=== PATIENT | female | born 1940 | race Caucasian/White ===

== ENCOUNTER 2017-04-20 15:28 | Emergency (ER) | payer OTHER ==
[~2017-04-20] VITALS: Ht 144.8 cm; Wt 65.8 kg
[~2017-04-20 15:28] MED LIST: ASPIRIN EC81 M1 PO; CARAFATE 1 GM TA1 G1 PO; CARVEDILOL12.5 MG PO; CHOLEST OFF450 MG PO; CLOPIDOGREL75 MG PO; CYCLOBENZAPRINE10 MG PO; FISH OIL 1,0001 EAC5 PO; HYDROCHLOROTH12.5 MG PO; HYDROCODON-ACE1 EAC7 PO; IMDUR 30 MG TAB30 M1 PO; KEFLEX500 MG PO; LISINOPRIL5 MG PO; MACROBID 100 M100 M1 PO; MIRAPEX0.5 MG PO; MOBIC15 MG PO; MULTIVITAMINS PO; NEURONTIN 300300 M1; OMEPRAZOLE 20 M20 MG PO; OXYCODONE HCL15 MG; OYSCO 500+D TA1 EAC1 PO; PLAVIX 75 MG TA75 MG PO; PROTONIX40 M1 PO; REQUIP XL2 MG PO; REQUIP3 MG PO; SIMVASTATIN40 MG PO; TIZANIDINE HCL4 MG PO; TRAMADOL 50 MG50 MG PO; VITAMIN D31000 UNI2 PO; ZANTAC 150MG T150 MG PO
[2017-04-20] MEDS ORDERED: NITROGLYCERIN0.4 MG SUBLING (15:57)
[2017-04-20] MEDS ORDERED: SPIRONOLACTONE25 M1 PO (15:58)
[2017-04-20] MEDS ORDERED: PLAVIX 75 MG TA75 M1 PO (15:58)
[2017-04-20] MEDS ORDERED: POTASSIUM600 MG PO (15:59)
[2017-04-20] MEDS ORDERED: MAGOX 400400 MG PO (15:59)
[2017-04-20] MEDS ORDERED: ONE DAILY FOR1 EAC3 PO (16:00)
[2017-04-20] MEDS ORDERED: NORCO 5-325 TA1 EACH PO (17:31)
[2017-04-20 17:58] VITALS: BP 113/62
== END 2017-04-20 18:13 | disposition home or self-care (01) ==
LOC: M.ERS 15:28
DX: S22.41XA Multiple fractures of ribs, right side, initial encounter for closed fracture (principal); S00.03XA Contusion of scalp, initial encounter; I25.10 Atherosclerotic heart disease of native coronary artery without angina pectoris; I10 Essential (primary) hypertension; K21.9 Gastro-esophageal reflux disease without esophagitis; Z90.711 Acquired absence of uterus with remaining cervical stump; Z90.49 Acquired absence of other specified parts of digestive tract; Z88.8 Allergy status to other drugs, medicaments and biological substances; Z88.1 Allergy status to other antibiotic agents; W00.0XXA Fall on same level due to ice and snow, initial encounter; Y93.89 Activity, other specified; Y92.89 Other specified places as the place of occurrence of the external cause; Y99.8 Other external cause status

== ENCOUNTER 2017-04-28 17:59 | Emergency (ER) | payer OTHER ==
[~2017-04-28] VITALS: Ht 144.8 cm; Wt 65.8 kg
[~2017-04-28 17:59] MED LIST changes: +MAGOX 400400 MG PO; +NITROGLYCERIN0.4 MG SUBLING; +NORCO 5-325 TA1 EACH PO; +ONE DAILY FOR1 EAC3 PO; +PLAVIX 75 MG TA75 M1 PO; +POTASSIUM600 MG PO; +SPIRONOLACTONE25 M1 PO
[2017-04-28 18:48] LABS: ABSOLUTE BASOPHILS 0.1 thou/uL (0.0-0.2); ABSOLUTE EOSINOPHILS 0.2 thou/uL (0.0-0.7); ABSOLUTE MONOCYTES 0.4 thou/uL (0.0-1.2); ABSOLUTE NEUTROPHILS 3.8 thou/uL (1.6-8.1); BASOPHILS 0.7 %; EOSINOPHILS 2.5 %; HEMATOCRIT 37.5 % (37.0-47.0); HEMOGLOBIN 12.7 gm/dL (12.0-15.0); LYMPHOCYTES 39.5 %; MCH 31.2 pg (26.0-34.0); MCHC 33.8 g/dL (28.0-37.0); MCV 92.5 fL (80.0-100.0); MPV 7.3 fl. (7.2-11.1); NUCLEATED RBCS 0 /100WBC; PLATELET COUNT* 179 thou/uL (150-400); POLYS 51.3 %; RBC 4.05 mil/uL (4.20-5.00); WBC 7.5 thou/uL (4.0-11.0)
[2017-04-28 18:56] LABS: CALCIUM 9.7 mg/dL (8.5-10.1)
[2017-04-28 19:01] LABS: ALBUMIN 3.7 g/dL (3.4-5.0); TOTAL BILIRUBIN 0.5 mg/dL (<0.1-1.0); TOTAL PROTEIN 7.1 g/dL (6.4-8.2)
[2017-04-28] MEDS ORDERED: PERCOCET PO (21:02)
[2017-04-28 21:10] VITALS: BP 134/68
--- NOTE | 2017-04-29 10:53 | EKG ---
[place] [address] ELECTROCARDIOGRAM REPORT Name: CONSTANTINO AGUAYO [facility] [id number] Admission: 04/28/17 Attend Phys: Discharge: 04/28/17 Date of : 38 Report #: [id number] THIS REPORT FOR: //name// [facility] ED Test Date: 2017-04-28 Test Time: 18:04:30 Pat Name: CONSTANTINO AGUAYO Department: Room: Gender: F Affiliate Marketing Coordinator: FELIX : 1940 Requested By: Janiya López Order Number: [id number] MD: Marques Matute Measurements Intervals [place] Rate: 65 P: -22 [place]: 164 QRS: 38 QRSD: 90 T: 41 QT: 383 QTc: 399 Interpretive Statements Sinus rhythm Compared to ECG 04/25/2015 07:07:30 No significant changes Electronically Signed On 04-29-2017 10:53:00 BROADCAST SUPERVISOR by Marques Matute [email or web address] <ELECTRONICALLY SIGNED> By: Marques Matute MD, [facility] 04/29/17 1053 1804 180 Marques Matute MD, FACC /EPI
== END 2017-04-28 21:10 | disposition home or self-care (01) ==
LOC: M.ERS 17:59
PROVIDERS: Personal Emergency Response Attendant
DX: S22.42XK Multiple fractures of ribs, left side, subsequent encounter for fracture with nonunion (principal); R07.89 Other chest pain; I25.10 Atherosclerotic heart disease of native coronary artery without angina pectoris; K21.9 Gastro-esophageal reflux disease without esophagitis; I10 Essential (primary) hypertension; Z90.710 Acquired absence of both cervix and uterus; Z90.49 Acquired absence of other specified parts of digestive tract; Z88.8 Allergy status to other drugs, medicaments and biological substances; Z88.1 Allergy status to other antibiotic agents; X58.XXXD Exposure to other specified factors, subsequent encounter

== ENCOUNTER 2017-06-02 14:14 | Emergency (ER) | payer OTHER ==
[~2017-06-02] VITALS: Ht 144.8 cm; Wt 64.4 kg
[~2017-06-02 14:14] MED LIST changes: +PERCOCET PO
[2017-06-02 15:19] VITALS: BP 137/72
== END 2017-06-02 15:20 | disposition home or self-care (01) ==
LOC: M.ERS 14:14
DX: S60.222A Contusion of left hand, initial encounter (principal); I10 Essential (primary) hypertension; I25.10 Atherosclerotic heart disease of native coronary artery without angina pectoris; K21.9 Gastro-esophageal reflux disease without esophagitis; Z88.8 Allergy status to other drugs, medicaments and biological substances; Z88.1 Allergy status to other antibiotic agents; W22.8XXA Striking against or struck by other objects, initial encounter; Y93.89 Activity, other specified; Y92.89 Other specified places as the place of occurrence of the external cause; Y99.8 Other external cause status

== ENCOUNTER → 2017-06-05 | Outpatient (CLI) | payer OTHER ==
[~2017-06-05] MED LIST changes: +COLESTIPOL HCL1 G1 PO; +PLAVIX 75 MG TA75 M1
== END ==
LOC: M.RAD 13:47
DX: Z13.820 Encounter for screening for osteoporosis (principal); N91.2 Amenorrhea, unspecified; Z78.0 Asymptomatic menopausal state

== ENCOUNTER → 2017-06-24 | Outpatient (CLI) | payer OTHER | LOC: M.RAD 10:59 | DX: R05 Cough (principal) ==

== ENCOUNTER 2017-10-02 18:31 | Inpatient (IN) | payer OTHER ==
[~2017-10-02] VITALS: Ht 144.8 cm; Wt 68.4 kg
[~2017-10-02 18:31] MED LIST changes: -COLESTIPOL HCL1 G1 PO; -PLAVIX 75 MG TA75 M1
[2017-10-02 18:34] VITALS: BP 137/64
[2017-10-02 19:23] LABS: ABSOLUTE LYMPHOCYTES 1.8 thou/uL (0.8-5.3); ABSOLUTE MONOCYTES 0.4 thou/uL (0.0-1.2); BASOPHILS 0.6 %; EOSINOPHILS 0.7 %; HEMATOCRIT 36.5 % (37.0-47.0); HEMOGLOBIN 12.2 gm/dL (12.0-15.0); LYMPHOCYTES 24.9 %; MCH 31.6 pg (26.0-34.0); MCHC 33.5 g/dL (28.0-37.0); MCV 94.3 fL (80.0-100.0); MONOCYTES 5.7 %; MPV 7.3 fl. (7.2-11.1); NUCLEATED RBCS 0 /100WBC; PLATELET COUNT* 201 thou/uL (150-400); POLYS 68.1 %; RBC 3.87 mil/uL (4.20-5.00); RDW-CV 14.3 % (10.5-14.5); WBC 7.3 thou/uL (4.0-11.0)
[2017-10-02 19:29] LABS: ANION GAP 7 mmol/L (7-16); BUN 17 mg/dL (7-18); CALCIUM 8.8 mg/dL (8.5-10.1); CHLORIDE 101 mmol/L (98-107); CO2 32 mmol/L (21-32); GLUCOSE 95 mg/dL (70-99); POTASSIUM 3.5 mmol/L (3.5-5.1); SODIUM 140 mmol/L (136-145)
[2017-10-02 19:34] LABS: APTT 25.2 Seconds (25.0-31.3); PROTIME 9.7 Seconds (9.20-11.50)
[2017-10-02 19:39] LABS: ALBUMIN 3.6 g/dL (3.4-5.0); ALKALINE PHOSPHATASE 213 U/L (46-116); NT-PRO BRAIN NAT PEPTIDE 147 pg/mL (<300); SGOT 125 U/L (15-37); SGPT 74 U/L (30-65); TOTAL BILIRUBIN 0.7 mg/dL (<0.1-1.0); TOTAL PROTEIN 7.1 g/dL (6.4-8.2); TROPONIN-I LEVEL <0.06 ng/mL (<0.06)
[2017-10-02 20:03] LABS: LIPASE 10461 U/L (73-393)
[2017-10-02 22:02] LABS: URINE BILIRUBIN NEGATIVE (Negative); URINE BLOOD NEGATIVE (Negative); URINE CLARITY CLEAR; URINE COLOR YELLOW; URINE GLUCOSE-RANDOM NEGATIVE (Negative); URINE KETONES NEGATIVE (Negative); URINE LEUKOCYTES-REFLEX NEGATIVE (Negative); URINE NITRITE-REFLEX NEGATIVE (Negative); URINE PROTEIN NEGATIVE (Negative); URINE UROBILINOGEN 0.2 E.U./dl (0.2-1.0)
[2017-10-02 22:49] VITALS: BP 115/61
[2017-10-02 23:00] VITALS: BP 113/77
[2017-10-03] MEDS ORDERED: PLAVIX 75 MG TA75 M1 (01:33)
[2017-10-03] MEDS ORDERED: COLESTIPOL HCL1 G1 PO (01:33)
[2017-10-03 08:57] VITALS: BP 125/69
--- NOTE | 2017-10-03 15:18 | EKG ---
[place] [address] ELECTROCARDIOGRAM REPORT Name: CONSTANTINO AGUAYO Room: [address] IN .R.#: [id number] Admission: 10/02/17 Attend Phys: Ruperto Winters MD Discharge: Date of : 38 Report #: [id number] THIS REPORT FOR: //name// [facility] ED Test Date: 2017-10-02 Test Time: 18:36:46 Pat Name: CONSTANTINO AGUAYO Department: Room: Gender: F Director Economic: BRISEYDA MUÑOZ : 1940 Requested By: Janiya López Order Number: [id number] MD: Nahid Lee Measurements Intervals [place] Rate: 82 P: 58 [place]: 164 QRS: 31 QRSD: 93 T: 32 QT: 373 QTc: 436 Interpretive Statements Sinus rhythm Baseline wander in lead(s) V3 Compared to ECG 04/28/2017 18:04:30 No significant changes Electronically Signed On 10-03-2017 15:18:19 CDT by Nahid Lee [email or web address] <ELECTRONICALLY SIGNED> By: Nahid Lee MD, [facility] 10/03/17 1518 1836 183 Nahid Lee MD, [facility] /EPI
[2017-10-03 16:23] VITALS: BP 102/56
[2017-10-04 04:46] LABS: ABSOLUTE EOSINOPHILS 0.1 thou/uL (0.0-0.7); ABSOLUTE LYMPHOCYTES 1.4 thou/uL (0.8-5.3); ABSOLUTE MONOCYTES 0.4 thou/uL (0.0-1.2); ABSOLUTE NEUTROPHILS 3.5 thou/uL (1.6-8.1); BASOPHILS 0.4 %; EOSINOPHILS 2.5 %; HEMATOCRIT 32.1 % (37.0-47.0); HEMOGLOBIN 10.7 gm/dL (12.0-15.0); LYMPHOCYTES 25.7 %; MCH 31.9 pg (26.0-34.0); MCHC 33.4 g/dL (28.0-37.0); MCV 95.5 fL (80.0-100.0); MPV 7.8 fl. (7.2-11.1); NUCLEATED RBCS 0 /100WBC; PLATELET COUNT* 159 thou/uL (150-400); POLYS 64.4 %; RBC 3.37 mil/uL (4.20-5.00); RDW-CV 14.8 % (10.5-14.5); WBC 5.4 thou/uL (4.0-11.0)
[2017-10-04 05:19] LABS: ALKALINE PHOSPHATASE 169 U/L (46-116); ANION GAP 9 mmol/L (7-16); BUN 7 mg/dL (7-18); CHLORIDE 105 mmol/L (98-107); CO2 24 mmol/L (21-32); CREATININE 0.9 mg/dL (0.6-1.3); GLUCOSE 96 mg/dL (70-99); LIPASE 249 U/L (73-393); POTASSIUM 3.3 mmol/L (3.5-5.1); SGOT 66 U/L (15-37); SGPT 76 U/L (30-65); SODIUM 138 mmol/L (136-145); TOTAL BILIRUBIN 0.8 mg/dL (<0.1-1.0)
[2017-10-04 05:32] LABS: CHOLESTEROL 157 mg/dL (<200); HDL CHOLESTEROL 50 mg/dL (>40); LDL CHOLESTEROL 91 mg/dL (<100); TC:HDL 3.1 Ratio (Not establshd); TRIGLYCERIDE 80 mg/dL (<150); VLDL 16 mg/dL (<40)
[2017-10-04 05:33] LABS: SERUM ASSESSMENT Clear
[2017-10-04 08:00] VITALS: BP 116/59
[2017-10-04 17:00] VITALS: BP 143/66
[2017-10-04 20:00] VITALS: BP 141/69
[2017-10-05 05:25] LABS: ALBUMIN 2.8 g/dL (3.4-5.0); DIRECT BILIRUBIN 0.1 mg/dL (<0.1-0.3); TOTAL BILIRUBIN 0.4 mg/dL (<0.1-1.0); TOTAL PROTEIN 5.7 g/dL (6.4-8.2)
[2017-10-05 05:43] VITALS: BP 141/69
[2017-10-05 05:58] VITALS: BP 120/66
[2017-10-05 08:25] VITALS: BP 124/65
[2017-10-05 11:45] VITALS: BP 144/85
[2017-10-05 16:00] VITALS: BP 137/70
[2017-10-05 20:10] VITALS: BP 123/44
[2017-10-06 05:39] LABS: ALBUMIN 2.7 g/dL (3.4-5.0); DIRECT BILIRUBIN 1.9 mg/dL (<0.1-0.3); TOTAL BILIRUBIN 2.8 mg/dL (<0.1-1.0); TOTAL PROTEIN 5.6 g/dL (6.4-8.2)
[2017-10-06 08:25] VITALS: BP 127/61
[2017-10-06 16:00] VITALS: BP 110/55
--- NOTE | 2017-10-06 17:21 | CON ---
[address] [address] CONSULTATION Name: CONSTANTINO AGUAYO Room: [address] IN .R.#: [id number] Admission: 10/02/17 Attend Phys: Ruperto Winters MD Discharge: Date of : 38 Report #: [id number] THIS REPORT FOR: //name// CC: Ruperto Jerry DO DICTATED BY: Cherelle Guan [facility] DATE OF SERVICE: 10/03/2017 Please note, at the time of this dictation the patient was seen and physically examined by myself. REASON FOR CONSULTATION: Abdominal pain, nausea, vomiting, pancreatitis. HISTORY OF PRESENT ILLNESS: This is a 76-year-old female who presented to the Emergency Room yesterday after having increasing epigastric discomfort and substernal discomfort causing some nausea and vomiting, prompting her to come in to be seen. It was noted on admission that her lipase level was 10,461, but no evidence noted on her CT for any pancreatitis. The patient denies starting any new medications at this time. She states over the years she has had similar off and on discomfort that has not been further investigated. Greater than 6 years ago, she had her gallbladder out for similar pains that she was having, but her pains never went away and that is what they were thinking that they would have gone away after her gallbladder was removed, but that did not occur. The patient recently saw Dr. Helm and had an EGD done on the , she had grade A esophagitis, Schatzki ring that was dilated and a small hiatal hernia. She then underwent a GET here most recently that showed tachygastria. Within the first hour she was 39.6, second hour 5.1 and third hour 1.4%. She had not been told of these results yet. She had not returned our phone call. We will start her on her Bentyl 10 mg a.c. t.i.d. at this time. The patient currently is still complaining of this epigastric and kind of sternal discomfort at the time that she is seen. The patient states she has a long history of having high cholesterol, which she takes an tiyd-cwq-zbghddx medicine for to help with that, but does not recall when last time her cholesterol has been checked. She denies any new medications being started at this time and is not having any issues with her bowels. It is also noted on admission that her LFTs are somewhat elevated, just slightly. ALLERGIES: CIPROFLOXACIN, FLAGYL, AND DEMEROL. MEDICATIONS: From home include carvedilol, Zantac, Mirapex, Protonix, plant sterols or CholestOff, spironolactone, potassium, aspirin, and vitamin D. PAST MEDICAL HISTORY: Hypertension, coronary artery disease, [place] [address] CONSULTATION Name: CONSTANTINO AGUAYO Room: [address] IN [facility]#: [id number] Admission: 10/02/17 Attend Phys: Ruperto Winters MD Discharge: Date of : 38 Report #: [id number] stent placed in 2007, GERD, history of esophagitis grade A with her recent EGD, and history of diverticulitis. PAST SURGICAL HISTORY: Cardiac stent, hysterectomy and cholecystectomy. FAMILY HISTORY: Negative for any GI or female cancer. SOCIAL HISTORY: Denies any alcohol, tobacco or illegal drug use. REVIEW OF SYSTEMS: Twelve-point review of systems is essentially negative except what is mentioned in the HPI. PHYSICAL EXAMINATION: VITAL SIGNS: Temperature 37.1, pulse 87, respirations 19, blood pressure 125/64. HEART: Regular rate and rhythm. LUNGS: Clear. ABDOMEN: Soft, positive bowel sounds in all 4 quadrants with some slight epigastric to substernal tenderness noted to palpation. LABORATORY DATA: Hemoglobin is 12.2, hematocrit 36.5, white count is 7.3, platelets 201. PT 9.7, INR is 1. Sodium 140, potassium 3.5, chloride 101, CO2 of 32, BUN is 17, creatinine is 1, GFR is 54, glucose is 95, total bilirubin 0.7, alkaline phosphatase 213, ALT is 74, AST is 125. CT shows sigmoid diverticulosis, absent gallbladder and mild dilatation of the CPD likely related to previous cholecystectomy and a small hiatal hernia. No inflammation or stranding is noted of the pancreas on CT. IMPRESSION: 1. Chest pain, epigastric. 2. Elevated lipase. 3. Tachygastria documented on recent GET as an outpatient. 4. Esophagitis grade A recent EGD along with Schatzki ring that was dilated. PLAN: 1. Recheck lipase and lipids fasting in the a.m. 2. We will let the patient have clear liquids and see how she does. 3. Bentyl 10 mg a.c. t.i.d. 4. We will consider an EUS as an outpatient for her ongoing discomfort in the epigastric area for years, but worsening upon this admission. 5. We will allow the patient to have clear liquids [place] [address] CONSULTATION Name: CONSTANTINO AGUAYO Room: [address] IN ..#: [id number] Admission: 10/02/17 Attend Phys: Ruperto Winters MD Discharge: Date of : 38 Report #: [id number] Thank you for allowing us to participate in this patient's care. Please do not hesitate to call with any questions in regard to this consult. <ELECTRONICALLY SIGNED> By: Juan Diego Hart DO 10/06/17 1721 1155 1222Juan Diego Hart DO /nt
--- NOTE | 2017-10-06 17:21 | CON ---
[address] [address] CONSULTATION Name: TACOSKhalidaJANESSAHECTOROrestes Fox Room: [address] IN M.R.#: [id number] Admission: 10/02/17 Attend Phys: Ruperto Winters MD Discharge: Date of : 38 Report #: [id number] THIS REPORT FOR: //name// CC: Ruperto HORN DO Shaylee Cee MD DATE OF SERVICE: 10/03/2017 ADDENDUM REFERRING PHYSICIAN: Dr. Winters. I have seen and examined the patient and I agree with the plans that have been outlined by our nurse practitioner, Cherelle Guan. I am mostly concerned about the rather severe chest discomfort, chest pain associated with an elevated alkaline phosphatase, dilated common bile duct on CT scan and an elevated lipase without evidence for severe pancreatitis. I suspect that the patient either had a stone or had passed a common bile duct stone or she has sphincter of Oddi dysfunction, type 1. If she has sphincter of Oddi dysfunction type 1, she will have 90+ percent chance of getting better with an ERCP with a shallow biliary sphincterotomy of about 6 mm, followed by balloon exploration of the common bile duct. For this reason, I will order an MRCP to be done tomorrow morning and then have my partner, Dr. Helm, make the decision as to whether or not he wishes to proceed with an ERCP tomorrow afternoon. I have drawn pictures for the patient who spent about 20 minutes with them regarding the same. I will make further recommendations after the MRCP is done tomorrow. <ELECTRONICALLY SIGNED> By: Juan Diego Hart DO 10/06/17 1721 1816 [id number] Diego Hart DO /nt
[2017-10-06 19:50] VITALS: BP 123/66
[2017-10-07 04:38] LABS: ALBUMIN 2.4 g/dL (3.4-5.0); DIRECT BILIRUBIN 1.4 mg/dL (<0.1-0.3); TOTAL BILIRUBIN 1.9 mg/dL (<0.1-1.0); TOTAL PROTEIN 5.1 g/dL (6.4-8.2)
[2017-10-07 07:50] VITALS: BP 118/62
[2017-10-07 12:14] VITALS: BP 118/62
== END 2017-10-07 13:24 | disposition home or self-care (01) | DRG 438 ==
LOC: M.ERS 18:31 → M.3W 20:33 → M.TBA-ER 20:33 → M.3W 23:04
PROVIDERS: Family Medicine; Internal Medicine; Internal Medicine Gastroenterology; Personal Emergency Response Attendant; ADMIT Internal Medicine
PROC: 0FC98ZZ Extirpation of Matter from Common Bile Duct, Via Natural or Artificial Opening Endoscopic (ICD-10-PCS; principal; 2017-10-05)
PROC: BF111ZZ Fluoroscopy of Biliary and Pancreatic Ducts using Low Osmolar Contrast (ICD-10-PCS; principal; 2017-10-05)
DX: K85.90 Acute pancreatitis without necrosis or infection, unspecified (principal); R65.11 Systemic inflammatory response syndrome (SIRS) of non-infectious origin with acute organ dysfunction; K80.71 Calculus of gallbladder and bile duct without cholecystitis with obstruction; K75.89 Other specified inflammatory liver diseases; R10.13 Epigastric pain; I10 Essential (primary) hypertension; K31.89 Other diseases of stomach and duodenum; I25.10 Atherosclerotic heart disease of native coronary artery without angina pectoris; M43.10 Spondylolisthesis, site unspecified; E78.5 Hyperlipidemia, unspecified; G25.81 Restless legs syndrome; D64.9 Anemia, unspecified; K20.9 Esophagitis, unspecified; M19.90 Unspecified osteoarthritis, unspecified site; K21.9 Gastro-esophageal reflux disease without esophagitis; Z96.1 Presence of intraocular lens; Z79.2 Long term (current) use of antibiotics; Z79.82 Long term (current) use of aspirin; Z79.899 Other long term (current) drug therapy; Z90.49 Acquired absence of other specified parts of digestive tract; Z88.6 Allergy status to analgesic agent; Z88.1 Allergy status to other antibiotic agents; Z90.711 Acquired absence of uterus with remaining cervical stump; Z95.1 Presence of aortocoronary bypass graft; Z98.41 Cataract extraction status, right eye; Z90.722 Acquired absence of ovaries, bilateral; Z95.5 Presence of coronary angioplasty implant and graft

== ENCOUNTER → 2017-10-16 | Outpatient (CLI) | payer OTHER ==
[~2017-10-16] MED LIST changes: +COLESTIPOL HCL1 G1 PO; +PLAVIX 75 MG TA75 M1
--- NOTE | 2017-10-16 17:11 | 2DMMODE ---
[place] [address] 2 D/M-MODE ECHOCARDIOGRAM Name: HECTOR AGUAYOOrestes Fox Room: [facility]#: [id number] Admission: 10/16/17 Attend Phys: Debo Vigil Discharge: Date of : 38 Date of Service: 10/16/17 1710 Report #: [id number] THIS REPORT FOR: //name// APPROVED REPORT Study performed: 10/16/2017 14:00:01 EXAM: Comprehensive 2D, Doppler, and color-flow Echocardiogram Patient Location: Out-Patient Status: routine BSA: 1.65 HR: 73 bpm BP: 146/78 mmHg Other Information Study Quality: Good Indications Elevated BNP Edema 2D Dimensions LVEF(%): 73.43 (>50%) IVSd: 10.95 (7-11mm) LVOT Diam: 18.17 (18-24mm) LVDd: 36.54 mm PWd: 11.10 (7-11mm) Ascending Ao: 28.55 (22-36mm) LVDs: 21.33 (25-40mm) Aortic Root: 26.74 mm Peña's LVEF: 73.43 % Volumes Left Atrial Volume (Systole) LA ESV Index: 12.00 mL/m2 Aortic Valve AoV Peak Aaron.: 1.27 m/s AO Peak Gr.: 6.46 mmHg LVOT Max P.64 mmHg AO Mean Gr.: 3.44 mmHg LVOT Mean P.20 mmHg LVOT Max V: 1.08 m/s AO V2 VTI: 22.17 cm LVOT Mean V: 0.68 m/s JEREMY (VTI): 2.68 cm2 LVOT V1 VTI: 22.91 cm Mitral Valve E/A Ratio: 0.81 MV Decel. Time: 236.20 [place] [address] 2 D/M-MODE ECHOCARDIOGRAM Name: CONSTANTINO AGUAYO Room: [facility]#: [id number] Admission: 10/16/17 Attend Phys: Debo Vigil Discharge: Date of : 38 Date of Service: 10/16/17 1710 Report #: [id number] MV E Max Aaron.: 0.66 m/s MV PHT: 68.50 ms MVA (PHT): 3.21 cm2 TDI E/Lateral E': 9.43 E/Medial E': 9.43 Medial E' Aaron.: 0.07 m/s Lateral E' Aaron.: 0.07 m/s Pulmonary Valve PV Peak Aaron.: 1.01 m/s PV Peak Gr.: 4.04 mmHg Tricuspid Valve RAP Estimate: 5.00 mmHg TR Peak Gr.: 21.95 mmHg RVSP: 26.95 mmHg PA Pressure: 26.95 mmHg Left Ventricle The left ventricle is normal size. There is normal LV segmental wall motion. There is normal left ventricular wall thickness. Left ventricular systolic function is normal. The left ventricular ejection fraction is within the normal range. LVEF is 55-60%. Grade I - abnormal relaxation pattern. Right Ventricle The right ventricle is normal size. The right ventricular systolic function is normal. Atria The left atrium size is normal. The right atrium size is normal. Aortic Valve Mild aortic valve sclerosis. No aortic regurgitation is present. There is no aortic valvular stenosis. Mitral Valve The mitral valve is normal in structure. Mild mitral regurgitation. No evidence of mitral valve stenosis. Tricuspid Valve The tricuspid valve is normal in structure. Mild tricuspid regurgitation. Pulmonic Valve The pulmonary valve is normal in structure[place] [address] 2 D/M-MODE ECHOCARDIOGRAM Name: CONSTANTINO AGUAYO Dominique Room: [facility]#: [id number] Admission: 10/16/17 Attend Phys: Debo Vigil Discharge: Date of : 38 Date of Service: 10/16/17 1710 Report #: [id number] regurgitation. Great Vessels The aortic root is normal in size. IVC is normal in size and collapses with >50% inspiration Pericardium There is no pericardial effusion. <Conclusion> The left ventricle is normal size. There is normal left ventricular wall thickness. Left ventricular systolic function is normal. The left ventricular ejection fraction is within the normal range. LVEF is 55-60%. Grade I - abnormal relaxation pattern. The right ventricle is normal size. The left atrium size is normal. Mild aortic valve sclerosis. No aortic regurgitation is present. There is no aortic valvular stenosis. The mitral valve is normal in structure. Mild mitral regurgitation. The tricuspid valve is normal in structure. IVC is normal in size and collapses with >50% inspiration There is no pericardial effusion. There is normal LV segmental wall motion. <ELECTRONICALLY SIGNED> By: Nahid Lee MD, FACC 10/16/171709 09 09 Nahid Lee MD, FACC /INF
== END ==
LOC: M.CRD 13:49
DX: I08.1 Rheumatic disorders of both mitral and tricuspid valves (principal)

== ENCOUNTER → 2017-10-24 | Outpatient (CLI) | payer OTHER ==
--- NOTE | 2017-10-29 13:06 | PF ---
[address] [address] PULMONARY FUNCTION REPORT Name: CONSTANTINO AGUAYO Room: [facility] ROLAND Stewart#: [id number] Admission: 10/24/17 Attend Phys: Miriam Wiley Discharge: Date of : 38 Report #: [id number] THIS REPORT FOR: //name// CC: Miriam Helm Shaylee Rosalino DATE OF SERVICE: 10/24/2017 PULMONARY FUNCTION TEST FINDINGS: The FEV1/FVC ratio is normal at 86%. The patient's FVC is also normal at 94%. The FEV1 is normal at 110%. The FEF 25-75 is also normal at 115%. After the administration of a bronchodilator, there is no significant change in the patient's FEV1. The patient's post-bronchodilator FEV1 is noted to be 1.55 liters. There is, however, a 13% increase in the patient's forced vital capacity. The patient's flow volume loop looks normal. The total lung capacity is decreased to 77%. The residual volume is also decreased to 60%. The patient's DLCO as adjusted for hemoglobin is decreased to 63%. IMPRESSION: 1. There is a mild restrictive pattern with a total lung capacity decreased to 77%. 2. There is no definite evidence of obstruction. It is, however, noted that there is a 13% increase in forced vital capacity after the administration of albuterol and underlying obstructive lung disease can lead to this picture. Clinical correlation is advised. 3. The DLCO as adjusted for hemoglobin is decreased to 63%. <ELECTRONICALLY SIGNED> By: Curtis Barnard MD 10/29/17 1306 1310 [id number] Barnard MD /nt
== END ==
LOC: M.PUL 09:44
DX: R06.09 Other forms of dyspnea (principal)

== ENCOUNTER 2018-05-17 20:45 | Inpatient (IN) | payer OTHER ==
[~2018-05-17] VITALS: Ht 144.8 cm; Wt 65.8 kg
[2018-05-17 20:53] VITALS: BP 142/84
[2018-05-17] MEDS ORDERED: POTASSIUM GLU2.5 MEQ PO (21:00)
[2018-05-17] MEDS ORDERED: BENTYL 10 MG CA10 M1 PO (21:15)
[2018-05-17] MEDS ORDERED: PROBIOTIC1 EAC1 PO (21:16)
[2018-05-17 21:51] LABS: ABSOLUTE BASOPHILS 0.1 thou/uL (0.0-0.2); ABSOLUTE EOSINOPHILS 0.1 thou/uL (0.0-0.7); ABSOLUTE LYMPHOCYTES 3.6 thou/uL (0.8-5.3); ABSOLUTE MONOCYTES 0.6 thou/uL (0.0-1.2); ABSOLUTE NEUTROPHILS 4.5 thou/uL (1.6-8.1); BASOPHILS 0.7 %; EOSINOPHILS 0.9 %; HEMATOCRIT 41.3 % (37.0-47.0); HEMOGLOBIN 13.6 gm/dL (12.0-15.0); LYMPHOCYTES 40.9 %; MCH 30.9 pg (26.0-34.0); MCHC 32.9 g/dL (28.0-37.0); MONOCYTES 6.4 %; MPV 8.1 fl. (7.2-11.1); NUCLEATED RBCS 0 /100WBC; PLATELET COUNT* 194 thou/uL (150-400); POLYS 51.1 %; WBC 8.8 thou/uL (4.0-11.0)
[2018-05-17 22:00] LABS: ALBUMIN 3.8 g/dL (3.4-5.0); CALCIUM 9.2 mg/dL (8.5-10.1); CREATININE 1.1 mg/dL (0.6-1.3); MAGNESIUM 2.2 mg/dL (1.8-2.4); POTASSIUM 3.8 mmol/L (3.5-5.1); TOTAL BILIRUBIN 0.3 mg/dL (<0.1-1.0); TOTAL PROTEIN 7.3 g/dL (6.4-8.2)
[2018-05-17 23:00] LABS: URINE BILIRUBIN NEGATIVE (Negative); URINE BLOOD NEGATIVE (Negative); URINE CLARITY CLEAR; URINE COLOR YELLOW; URINE GLUCOSE-RANDOM NEGATIVE (Negative); URINE KETONES NEGATIVE (Negative); URINE LEUKOCYTES-REFLEX 1+ (Negative); URINE NITRITE-REFLEX NEGATIVE (Negative); URINE PROTEIN NEGATIVE (Negative); URINE UROBILINOGEN 0.2 E.U./dl (0.2-1.0)
[2018-05-17 23:16] LABS: BACTERIA-REFLEX >30 Many /HPF (None Seen); CASTS None Seen /LPF (None Seen); CRYSTALS None Seen /LPF (None Seen); MUCUS 0-3 Light strn/LPF (None Seen); SQUAMOUS 0-3 Few /LPF (0-3); TRANSITIONAL EPITHEL CELL 0-3 Few /LPF (None Seen); URINE RBC 3-10 Few /HPF (0-2); URINE WBC-REFLEX >25 Many /HPF (0-5); WBC CLUMPS Few (None Seen)
[2018-05-17 23:40] VITALS: BP 125/69
[2018-05-18] VITALS (7 sets, daily range): BP systolic 115–164; BP diastolic 65–86
--- NOTE | 2018-05-18 15:06 | EKG ---
[place] [address] ELECTROCARDIOGRAM REPORT Name: CONSTANTINO AGUAYO Room: [address] ADM IN M.R.#: [id number] Admission: 05/17/18 Attend Phys: Ja Pierre, Discharge: Date of : 38 Report #: [id number] THIS REPORT FOR: //name// [facility] ED Test Date: 2018-05-17 Test Time: 21:06:36 Pat Name: CONSTANTINO AGUAYO Department: Room: [address] Gender: F Hand Cultivator: Nata SINGH : 1940 Requested By: Janiya López Order Number: [id number] MD: Adolph Lagunas Measurements Intervals [place] Rate: 83 P: -4 [place]: 168 QRS: 19 QRSD: 89 T: 40 QT: 373 QTc: 439 Interpretive Statements Sinus rhythm Ventricular premature complex Compared to ECG 10/02/2017 18:36:46 Ventricular premature complex(es) now present Electronically Signed On 05-18-2018 15:06:39 CDT by Adolph Lagunas [email or web address] <ELECTRONICALLY SIGNED> By: Adolph Lagunas MD, FACC 05/18/18 1506 05 05 Adolph Lagunas MD, FAC /EPI
[2018-05-18 16:24] LABS: NT-PRO BRAIN NAT PEPTIDE 249 pg/mL (<300); TROPONIN-I LEVEL <0.06 ng/mL (<0.06)
[2018-05-19] VITALS: BP 107/59
[2018-05-19 04:32] VITALS: BP 136/70
[2018-05-19 08:00] VITALS: BP 139/78
[2018-05-19] MEDS ORDERED: TRAMADOL 50 MG50 MG PO (14:13)
[2018-05-19 14:48] VITALS: BP 139/78
[2018-05-19 16:00] VITALS: BP 136/78
--- NOTE | 2018-05-19 17:22 | CARDNUC ---
[place] [address] CARDIAC NUCLEAR IMAGING REPORT Name: DEDEHECTOROrestes JACKLYN Room: [address] IN [facility]#: [id number] Admission: 05/17/18 Attend Phys: Ja Jones Discharge: Date of : 38 Date of Service: 05/19/18 1722 Report #: [id number] THIS REPORT FOR: //name// APPROVED REPORT Study performed: 05/18/2018 12:39:00 Indication: Chest pain, Dyspnea Patient Location: In-Patient Room #: 221 Stress Tech: Tanvi Lang Stress Nurse: Danuta Lyon RN Ht: 4 ft 9 in Wt: 145 lbs BSA: 1.57 m2 HR: 71 bpm BP: 157/88 mmHg BMI: 31.37 Medical History Medical History: CAD Medications: Carvedilol, Nitroglycerin, Aspirin, k-Dur, Spironolactone Allergies: Ciprofloxacin, Illeperidine, metronidazole Cardiac Risk Factors: Age, Hyperlipidemia, HTN, FHX of CAD Previous Cardiac Procedures: PCI Resting Data Rest SPECT myocardial perfusion imaging was performed in supine position 30 minutes following the intravenous injection of 11.4 mCi of Tc-99m Sestamibi. Time of rest injection: 10:20 The images were gated to evaluate regional wall motion and calculate left ventricular ejection fraction. Administration Route: IV Administration Site: Right Hand Pharmacologic Stress Pharmacologic stress test was performed by injecting Regadenoson 0.4 mg IV push over 10-15 seconds immediately followed by the intravenous injection of 34.2 mCi of Tc-99m Sestamibi. Time of stress injection: 11:55 Administration Route: IV Administration Site: Right Hand Heart Rate at time of stress injection: 106 bpm. Gated Stress SPECT was performed 40 minutes [place] [address] CARDIAC NUCLEAR IMAGING REPORT Name: CONSTANTINO AGUAYO Room: [address] IN ..#: [id number] Admission: 05/17/18 Attend Phys: Ja Jones Discharge: Date of : 38 Date of Service: 05/19/18 1722 Report #: [id number] The images were gated to evaluate regional wall motion and calculate left ventricular ejection fraction. Prone imaging was performed. Stress Test Details Stress Test: Pharmacologic stress testing performed using 0.4 mg of regadenoson per 5 mL given IV over 10 seconds. HR Max Heart Rate (APMHR): 142 bpm Resting HR: 71 bpm Target HR (85% APMHR): 120 bpm Max HR Achieved: 106 bpm % of APMHR: 74 Recovery HR: 98 bpm HR response to stress: Normal HR response to stress BP Resting BP: 157/88 mmHg Max BP: 106/67 mmHg Recovery BP: 143/81 mmHg BP response to stress: Normal blood pressure response to stress. ECG Resting ECG: Sinus Rhythm Stress ECG: Sinus Rhythm ST Change: None Arrhythmia: None Recovery ECG: Sinus Rhythm Recovery ST Change: None Recovery Arrhythmia: None Clinical Reason for Termination: Completed protocol Stress Symptoms: None Exercise capacity: 1.00 METs The patient tolerated Lexiscan infusion without significant symptoms. Stress ECG Conclusion The baseline 12-lead EKG shows sinus rhythm without significant ST or T wave abnormality. EKGs obtained during and post Lexiscan infusion show sinus rhythm with no significant ST or T wave changes when compared baseline. There were no stress-induced arrhythmias. Study Quality Study: Good Artifact: [place] [address] CARDIAC NUCLEAR IMAGING REPORT Name: TACOSKhalidaJANESSACONSTANTINO Room: [address]#: [id number] Admission: 05/17/18 Attend Phys: Ja Jones Discharge: Date of : 38 Date of Service: 05/19/18 1722 Report #: [id number] Study Data At rest, the left ventricular ejection fraction was 81%.. Post stress, the left ventricular ejection was 79%.. TID = 1.08. Perfusion Normal left ventricular perfusion. Wall Motion Normal left ventricular wall motion. Nuclear Conclusion ECG Findings: negative for ischemia Clinical Findings: negative for ischemia Nuclear Findings: negative for ischemia Exercise Capacity: not assessed Left Ventricular Function: normal Risk Study: low Myocardial perfusion images show no defect to suggest infarct or ischemia. Left ventricular systolic function appears normal on gated studies. This is a low risk study. <Conclusion> The baseline 12-lead EKG shows sinus rhythm without significant ST or T wave abnormality. EKGs obtained during and post Lexiscan infusion show sinus rhythm with no significant ST or T wave changes when compared baseline. There were no stress-induced arrhythmias. <ELECTRONICALLY SIGNED> By: Adolph Lagunas MD, FACC 05/19/18 172 21 21 Adolph Lagunas MD, FACC /INF
--- NOTE | 2018-05-22 16:54 | CON ---
[address] [address] CONSULTATION Name: CONSTANTINO AGUAYO Room: [address] IN M.R.#: [id number] Admission: 05/17/18 Attend Phys: Ja Pierre, Discharge: 05/19/18 Date of : 38 Report #: [id number] THIS REPORT FOR: //name// CC: Miriam Veliz DATE OF SERVICE: 05/18/2018 CARDIOLOGY CONSULTATION INDICATION: Shortness of breath and hip pain. HISTORY OF PRESENT ILLNESS: The patient is a very pleasant 77-year-old female with history of coronary artery disease, status post percutaneous coronary intervention in [address] [facility]. Apparently at that time, there was some debate as to whether or not she needed bypass surgery. She reports having a totally occluded artery that is filled by collaterals. The films were reviewed by outside ring making machine operator and it was decided to proceed with percutaneous coronary intervention. The patient denies any history of myocardial infarction. Risk factors include hypertension and dyslipidemia. She is a lifelong nonsmoker. Her mother did have angina at an older age. She presented to the hospital with complaints of feelings of shortness of breath and inability to get her breath. Evaluation thus far has been fairly unremarkable. I do not have a troponin or BNP, which will be ordered. EKG showed sinus rhythm without acute ST or T-wave abnormality. Echocardiogram last October was fairly unremarkable. She has not had stress testing in several years. She denies typical chest pain, although she reports a constant tightness around her chest described as her bra being too tight. She is not having krishna orthopnea. She denies paroxysmal nocturnal dyspnea. She does feel short of breath sometimes when she bends over. Her other complaint at this time appears to be related to lower back and hip issues. She has some pain radiating from around the left posterior lower back into her left upper thigh. CURRENT MEDICATIONS: Ventolin inhaler 2 puffs q. 6 hours p.r.n., carvedilol 12.5 mg p.o. b.i.d., vitamin D3 at 1000 mg per units daily, Colestid 1 g b.i.d., Bentyl 10 mg t.i.d. with meals, magnesium oxide 250 mg daily, Nitrostat 0.4 mg sublingual p.r.n., Protonix 40 mg daily, CholestOff supplement 1 daily, potassium chloride 20 mEq daily, Mirapex 0.5 mg tablet at bedtime, Zantac 300 mg at bedtime, Aldactone 25 mg daily. ALLERGIES: CIPROFLOXACIN, METRONIDAZOLE [place] [address] CONSULTATION Name: CONSTANTINO AGUAYO Room: [address] IN M.R.#: [id number] Admission: 05/17/18 Attend Phys: Ja Pierre, Discharge: 05/19/18 Date of : 38 Report #: [id number] PAST MEDICAL HISTORY: 1. Coronary artery disease. 2. Gastroesophageal reflux. 3. Hypertension. 4. Hyperlipidemia. 5. Rhabdomyolysis secondary to SIMVASTATIN. 6. Acute pancreatitis related to gallstone pancreatitis last year. 7. History of nephrolithiasis. PAST SURGICAL HISTORY: 1. Rib fracture in 2018. 2. Salpingo-oophorectomy bilaterally. 3. Ovarian cyst removal in 2013. 4. Cataract surgery in 2011. 5. Cholecystectomy in 2009. 6. Right rotator cuff surgery in 2008. 7. Partial hysterectomy. SOCIAL HISTORY: The patient is a lifelong nonsmoker. FAMILY HISTORY: Noncontributory. PHYSICAL EXAMINATION: VITAL SIGNS: Blood pressure 151/81, pulse 66 and regular. GENERAL: This is a pleasant lady, in no distress. Mood and affect appropriate. HEENT: Extraocular muscles intact. Mucous membranes moist. NECK: Shows no jugular venous distention. There are no carotid bruits. CHEST: Reveals clear lung barclay without wheezes, rales or rhonchi. CARDIOVASCULAR: Reveals regular rhythm, normal S1 and S2. I do not appreciate gallop or murmur. ABDOMEN: Reveals normal bowel sounds. The abdomen is soft, nontender. EXTREMITIES: Shows no clubbing, cyanosis or edema. Peripheral pulses 2+ and easily palpable. SKIN: Warm and dry. A 12-lead EKG shows sinus rhythm without significant ST or T-wave abnormality. IMPRESSION AND RECOMMENDATIONS: 1. Prolonged chest discomfort, somewhat atypical for angina. The patient is having some shortness of breath and dyspnea as well. We will proceed with noninvasive stress testing at this time. I would also like to obtain NT-proBNP and troponin at this time. Further intervention will be pending the results of that study. 2. Hypertension. We will make adjustments to medications as needed. Blood pressure minimally elevated at this time. [address] [address] CONSULTATION Name: CONSTANTINO AGUAYO Room: [facility] IN M.R.#: [id number] Admission: 05/17/18 Attend Phys: Ja Pierre, Discharge: 05/19/18 Date of : 38 Report #: [id number] 3. Dyslipidemia. The patient is currently on CholestOff and Colestid. Would recommend consideration of PCSK9 inhibitor. 4. History of coronary artery disease. Continue daily aspirin. 5. Remote history of percutaneous coronary intervention. <ELECTRONICALLY SIGNED> By: Adolph Lagunas MD, FACC 05/22/18 1654 1238 0915Microsalia Lagunas MD, FACC /nt
== END 2018-05-19 19:07 | disposition home or self-care (01) | DRG 556 ==
LOC: M.ERS 20:45 → M.TBA-ER 22:51 → M.2W 22:51
PROVIDERS: Internal Medicine Cardiovascular Disease; Personal Emergency Response Attendant; ADMIT Family Medicine
DX: M79.18 Myalgia, other site (principal); N39.0 Urinary tract infection, site not specified; R07.89 Other chest pain; M19.90 Unspecified osteoarthritis, unspecified site; I10 Essential (primary) hypertension; I25.10 Atherosclerotic heart disease of native coronary artery without angina pectoris; M54.30 Sciatica, unspecified side; R26.9 Unspecified abnormalities of gait and mobility; M51.37 Other intervertebral disc degeneration, lumbosacral region; M47.896 Other spondylosis, lumbar region; K21.9 Gastro-esophageal reflux disease without esophagitis; E78.5 Hyperlipidemia, unspecified; Z87.81 Personal history of (healed) traumatic fracture; Z95.1 Presence of aortocoronary bypass graft; Z95.5 Presence of coronary angioplasty implant and graft; Z90.710 Acquired absence of both cervix and uterus; Z98.41 Cataract extraction status, right eye; Z87.442 Personal history of urinary calculi; Z90.722 Acquired absence of ovaries, bilateral; Z79.899 Other long term (current) drug therapy; Z88.1 Allergy status to other antibiotic agents; Z88.8 Allergy status to other drugs, medicaments and biological substances

== ENCOUNTER → 2018-10-08 | Outpatient (CLI) | payer OTHER ==
[~2018-10-08] MED LIST changes: +BENTYL 10 MG CA10 M1 PO; +POTASSIUM GLU2.5 MEQ PO; +PROBIOTIC1 EAC1 PO
== END ==
LOC: M.MRI 07:54
DX: M50.11 Cervical disc disorder with radiculopathy, high cervical region (principal); M12.88 Other specific arthropathies, not elsewhere classified, other specified site; M48.02 Spinal stenosis, cervical region; G89.29 Other chronic pain

== ENCOUNTER 2018-12-28 20:08 | Emergency (ER) | payer OTHER ==
[~2018-12-28] VITALS: Ht 144.8 cm; Wt 65.3 kg
[2018-12-28] MEDS ORDERED: ASA81BEC PO (20:22)
[2018-12-28] MEDS ORDERED: HYDROCODON-ACE1 EAC8 PO (21:59)
[2018-12-28 22:12] VITALS: BP 119/55
== END 2018-12-28 22:14 | disposition home or self-care (01) ==
LOC: M.ERS 20:08
DX: M79.2 Neuralgia and neuritis, unspecified (principal); M19.90 Unspecified osteoarthritis, unspecified site; I10 Essential (primary) hypertension; Z95.5 Presence of coronary angioplasty implant and graft; Z87.442 Personal history of urinary calculi; Z88.1 Allergy status to other antibiotic agents; Z88.8 Allergy status to other drugs, medicaments and biological substances; Z90.711 Acquired absence of uterus with remaining cervical stump

== ENCOUNTER 2019-02-09 23:31 | Emergency (ER) | payer OTHER ==
[~2019-02-09] VITALS: Ht 144.8 cm; Wt 64.0 kg
[~2019-02-09 23:31] MED LIST changes: +ASA81BEC PO; +HYDROCODON-ACE1 EAC8 PO
[2019-02-09] MEDS ORDERED: FLEXERIL PO (23:54)
[2019-02-09] MEDS ORDERED: OXYCODONE HCL 55 MG PO (23:55)
[2019-02-10 00:21] LABS: ABSOLUTE EOSINOPHILS 0.3 thou/uL (0.0-0.7); ABSOLUTE LYMPHOCYTES 2.4 thou/uL (0.8-5.3); ABSOLUTE MONOCYTES 0.6 thou/uL (0.0-1.2); ABSOLUTE NEUTROPHILS 3.7 thou/uL (1.6-8.1); BASOPHILS 0.6 %; EOSINOPHILS 3.7 %; HEMATOCRIT 30.1 % (37.0-47.0); HEMOGLOBIN 10.4 gm/dL (12.0-15.0); LYMPHOCYTES 34.6 %; MCH 32.5 pg (26.0-34.0); MCHC 34.4 g/dL (28.0-37.0); MCV 94.5 fL (80.0-100.0); MONOCYTES 8.2 %; MPV 6.9 fl. (7.2-11.1); NUCLEATED RBCS 0 /100WBC; PLATELET COUNT* 277 thou/uL (150-400); POLYS 52.9 %; RBC 3.18 mil/uL (4.20-5.00); RDW-CV 14.2 % (10.5-14.5)
[2019-02-10 00:32] LABS: CALCIUM 8.4 mg/dL (8.5-10.1); CREATININE 0.9 mg/dL (0.6-1.3); POTASSIUM 3.1 mmol/L (3.5-5.1)
[2019-02-10 00:33] LABS: APTT 26.5 Seconds (25.0-31.3); PROTIME 10.3 Seconds (9.20-11.50)
[2019-02-10 00:36] LABS: ALBUMIN 3.4 g/dL (3.4-5.0); TOTAL BILIRUBIN 0.4 mg/dL (<0.1-1.0); TOTAL PROTEIN 6.2 g/dL (6.4-8.2)
[2019-02-10] MEDS ORDERED: ACETAMINOPHEN-1 EAC2 PO (01:31)
[2019-02-10] MEDS ORDERED: ZOFRAN ODT4 MG PO (01:31)
[2019-02-10] MEDS ORDERED: PROMS25 WY RECTAL (01:31)
[2019-02-10] MEDS ORDERED: BACLOFEN 10MG T10 MG PO (01:38)
[2019-02-10 01:51] VITALS: BP 161/83
--- NOTE | 2019-02-10 11:03 | EKG ---
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: [place] : 1940 Requested By: Janiya López Order Number: [id number] Whitney MD: Adolph Lagunas Measurements Intervals [place] Rate: 104 P: 49 CA: 140 QRS: 16 QRSD: 90 T: -1 QT: 342 QTc: 450 Interpretive Statements Sinus tachycardia Compared to ECG 05/17/2018 21:06:36 Sinus rhythm no longer present Ventricular premature complex(es) no longer present Electronically Signed On 02-10-2019 11:03:12 MACHINE TECH by Adolph Lagunas [email or web address] <ELECTRONICALLY SIGNED> By: Adolph Lagunas MD, [facility] 02/10/19 1103 2346 2346 Adolph Lagunas MD, FACC /EPI
== END 2019-02-10 01:51 | disposition home or self-care (01) ==
LOC: M.ERS 23:31
PROVIDERS: Personal Emergency Response Attendant
DX: R11.2 Nausea with vomiting, unspecified (principal); F45.42 Pain disorder with related psychological factors; I10 Essential (primary) hypertension; Z95.5 Presence of coronary angioplasty implant and graft; Z87.442 Personal history of urinary calculi; Z88.1 Allergy status to other antibiotic agents; Z88.8 Allergy status to other drugs, medicaments and biological substances; Z90.711 Acquired absence of uterus with remaining cervical stump

== ENCOUNTER 2019-05-05 11:24 | Emergency (ER) | payer OTHER ==
[~2019-05-05] VITALS: Ht 144.8 cm; Wt 72.9 kg
[~2019-05-05 11:24] MED LIST changes: +ACETAMINOPHEN-1 EAC2 PO; +BACLOFEN 10MG T10 MG PO; +FLEXERIL PO; +OXYCODONE HCL 55 MG PO; +PROMS25 WY RECTAL; +ZOFRAN ODT4 MG PO
[2019-05-05] MEDS ORDERED: FAMOTIDINE 40 M40 M1 PO (11:41)
[2019-05-05] MEDS ORDERED: PROBIOTIC1 EAC7 PO (11:42)
[2019-05-05] MEDS ORDERED: COLESTID1 GM PO (11:42)
[2019-05-05] MEDS ORDERED: PRAMIPEXOLE DI0.5 MG PO (11:43)
[2019-05-05] MEDS ORDERED: POTASSIUM GLU2.5 MEQ PO (11:43)
[2019-05-05 12:05] LABS: CALCIUM 8.7 mg/dL (8.5-10.1); CREATININE 0.9 mg/dL (0.6-1.3); POTASSIUM 3.8 mmol/L (3.5-5.1)
[2019-05-05 12:08] LABS: APTT 25.9 Seconds (25.0-31.3)
[2019-05-05 12:14] LABS: ABSOLUTE BASOPHILS 0.1 thou/uL (0.0-0.2); ABSOLUTE EOSINOPHILS 0.2 thou/uL (0.0-0.7); ABSOLUTE LYMPHOCYTES 2.1 thou/uL (0.8-5.3); ABSOLUTE MONOCYTES 0.4 thou/uL (0.0-1.2); ABSOLUTE NEUTROPHILS 5.1 thou/uL (1.6-8.1); HEMATOCRIT 34.1 % (37.0-47.0); HEMOGLOBIN 11.5 gm/dL (12.0-15.0); LYMPHOCYTES 26.3 %; MCHC 33.6 g/dL (28.0-37.0); MCV 89.2 fL (80.0-100.0); MONOCYTES 5.1 %; NUCLEATED RBCS 0 /100WBC; PLATELET COUNT* 214 thou/uL (150-400); POLYS 64.6 %; RBC 3.82 mil/uL (4.20-5.00); RDW-CV 13.8 % (10.5-14.5)
[2019-05-05 12:19] LABS: ALBUMIN 3.7 g/dL (3.4-5.0); CK-MB MASS 1.1 ng/mL (<0.5-3.6); MAGNESIUM 2.1 mg/dL (1.8-2.4); TOTAL BILIRUBIN 0.4 mg/dL (<0.1-1.0); TOTAL PROTEIN 6.9 g/dL (6.4-8.2)
[2019-05-05 15:19] VITALS: BP 137/89
--- NOTE | 2019-05-06 10:41 | EKG ---
[place] [address] ELECTROCARDIOGRAM REPORT Name: CONSTANTINO AGUAYO JACKLYN [facility] [id number] Admission: 05/05/19 Attend Phys: Discharge: 05/05/19 Date of : 38 Date of Service: 05/05/19 1130 Report #: [id number] THIS REPORT FOR: //name// [facility] ED Test Date: 2019-05-05 Test Time: 11:30:39 Pat Name: CONSTANTINO AGUAYO Department: Room: Gender: It Generalist: [place] : 1940 Requested By: Varun Goldstein Order Number: [id number] MD: Marques Matute Measurements Intervals [place] Rate: 66 P: -26 TN: 160 QRS: 23 QRSD: 86 T: 25 QT: 413 QTc: 433 Interpretive Statements Sinus rhythm Baseline wander in lead(s) II,III,aVL,aVF Compared to ECG 02/09/2019 23:46:39 Sinus tachycardia no longer present Electronically Signed On 05-06-2019 10:40:28 SAVE ALL OPERATOR by Marques Matute [email or web address] <ELECTRONICALLY SIGNED> By: Marques Matute MD, FAC 05/06/19 1040 1130 1130 Marques Matute MD, [facility] /EPI
== END 2019-05-05 15:19 | disposition home or self-care (01) ==
LOC: M.ERS 11:24
PROVIDERS: Family Medicine
DX: R10.13 Epigastric pain (principal); I10 Essential (primary) hypertension; K64.9 Unspecified hemorrhoids; Z88.8 Allergy status to other drugs, medicaments and biological substances; Z88.1 Allergy status to other antibiotic agents; Z87.442 Personal history of urinary calculi

== ENCOUNTER → 2019-05-19 | Outpatient (CLI) | payer OTHER ==
[~2019-05-19] MED LIST changes: +COLESTID1 GM PO; +FAMOTIDINE 40 M40 M1 PO; +PRAMIPEXOLE DI0.5 MG PO; +PROBIOTIC1 EAC7 PO
== END ==
LOC: M.RAD 11:09
DX: Z12.31 Encounter for screening mammogram for malignant neoplasm of breast (principal)

== ENCOUNTER 2019-07-10 00:20 | Emergency (ER) | payer OTHER ==
[~2019-07-10] VITALS: Ht 144.8 cm; Wt 64.0 kg
[2019-07-10] MEDS ORDERED: NORCO 5-325 TA1 EAC1 PO (00:40)
[2019-07-10] MEDS ORDERED: FLEXERIL PO (00:40)
[2019-07-10 01:04] VITALS: BP 130/64
== END 2019-07-10 01:04 | disposition home or self-care (01) ==
LOC: M.ERS 00:20
DX: M54.5 Low back pain (principal); I10 Essential (primary) hypertension; Z90.711 Acquired absence of uterus with remaining cervical stump; Z95.5 Presence of coronary angioplasty implant and graft; Z88.1 Allergy status to other antibiotic agents; Z88.8 Allergy status to other drugs, medicaments and biological substances; Z87.442 Personal history of urinary calculi

== ENCOUNTER → 2019-07-22 | Outpatient (CLI) | payer OTHER ==
[~2019-07-22] MED LIST changes: +NORCO 5-325 TA1 EAC1 PO
== END ==
LOC: M.PC 02:45
DX: M51.16 Intervertebral disc disorders with radiculopathy, lumbar region (principal); M47.26 Other spondylosis with radiculopathy, lumbar region; M16.11 Unilateral primary osteoarthritis, right hip; M25.751 Osteophyte, right hip

== ENCOUNTER → 2019-07-30 | Outpatient (CLI) | payer OTHER | LOC: M.RAD 07-22 10:30 → M.MRI 12:12 → M.RAD 14:10 | DX: M51.26 Other intervertebral disc displacement, lumbar region (principal); M47.26 Other spondylosis with radiculopathy, lumbar region; M48.061 Spinal stenosis, lumbar region without neurogenic claudication; M25.559 Pain in unspecified hip ==

== ENCOUNTER → 2019-08-05 | Outpatient (CLI) | payer OTHER | END | disposition home or self-care (01) | LOC: M.PC 04:15 | DX: M53.3 Sacrococcygeal disorders, not elsewhere classified (principal); M51.16 Intervertebral disc disorders with radiculopathy, lumbar region; M47.26 Other spondylosis with radiculopathy, lumbar region; M16.11 Unilateral primary osteoarthritis, right hip; I10 Essential (primary) hypertension; I25.10 Atherosclerotic heart disease of native coronary artery without angina pectoris; M19.90 Unspecified osteoarthritis, unspecified site; Z98.890 Other specified postprocedural states; Z79.899 Other long term (current) drug therapy; Z90.49 Acquired absence of other specified parts of digestive tract; Z90.710 Acquired absence of both cervix and uterus; Z87.19 Personal history of other diseases of the digestive system; Z87.442 Personal history of urinary calculi; Z88.8 Allergy status to other drugs, medicaments and biological substances; Z79.82 Long term (current) use of aspirin | CPT/HCPCS: G0260 ==

== ENCOUNTER → 2019-08-19 | Outpatient (CLI) | payer OTHER ==
[~2019-08-19] MED LIST changes: +TYLENOL WITH CO1 TA1 PO; +ZANAFLEX4 M2 PO
== END ==
LOC: M.PC 04:26
PROVIDERS: ATTEND Physical Medicine & Rehabilitation
DX: M51.16 Intervertebral disc disorders with radiculopathy, lumbar region (principal); M48.061 Spinal stenosis, lumbar region without neurogenic claudication; M47.26 Other spondylosis with radiculopathy, lumbar region; M79.605 Pain in left leg

== ENCOUNTER → 2019-09-02 | Outpatient (CLI) | payer OTHER | END | disposition home or self-care (01) | LOC: M.PC 03:32 | PROVIDERS: ATTEND Physical Medicine & Rehabilitation | DX: M53.3 Sacrococcygeal disorders, not elsewhere classified (principal); M54.5 Low back pain; G89.29 Other chronic pain; I10 Essential (primary) hypertension; M19.90 Unspecified osteoarthritis, unspecified site; Z98.890 Other specified postprocedural states; Z87.442 Personal history of urinary calculi; Z98.41 Cataract extraction status, right eye; Z90.711 Acquired absence of uterus with remaining cervical stump; Z79.899 Other long term (current) drug therapy ==

== ENCOUNTER → 2019-09-16 | Outpatient (CLI) | payer OTHER | LOC: M.PC 06:05 | PROVIDERS: ATTEND Physical Medicine & Rehabilitation | DX: M47.26 Other spondylosis with radiculopathy, lumbar region (principal); M51.16 Intervertebral disc disorders with radiculopathy, lumbar region; M79.605 Pain in left leg; M79.604 Pain in right leg ==

== ENCOUNTER → 2019-09-25 | Outpatient (CLI) | payer OTHER | LOC: M.LAB 07:59 | PROVIDERS: ATTEND Internal Medicine Gastroenterology | DX: Z01.812 Encounter for preprocedural laboratory examination (principal); Z11.59 Encounter for screening for other viral diseases; K21.9 Gastro-esophageal reflux disease without esophagitis ==

== ENCOUNTER → 2019-10-12 | Outpatient (CLI) | payer OTHER | LOC: M.LAB 08:26 | PROVIDERS: ATTEND Internal Medicine Gastroenterology | DX: Z01.812 Encounter for preprocedural laboratory examination (principal); Z11.59 Encounter for screening for other viral diseases; K21.9 Gastro-esophageal reflux disease without esophagitis ==

== ENCOUNTER 2019-10-25 19:45 | Emergency (ER) | payer OTHER ==
[~2019-10-25] VITALS: Ht 144.8 cm; Wt 65.3 kg
[2019-10-25] MEDS ORDERED: SPIRONOLACTONE25 MG PO (20:10)
[2019-10-25] MEDS ORDERED: FAMOTIDINE 40 M40 M1 PO (20:10)
[2019-10-25] MEDS ORDERED: MAGNESIUM250 M1 PO (20:11)
[2019-10-25 20:36] LABS: URINE BILIRUBIN NEGATIVE (Negative); URINE BLOOD TRACE (Negative); URINE COLOR YELLOW; URINE GLUCOSE-RANDOM NEGATIVE (Negative); URINE KETONES NEGATIVE (Negative); URINE NITRITE-REFLEX NEGATIVE (Negative); URINE PROTEIN NEGATIVE (Negative); URINE SPECIFIC GRAVITY <= 1.005 (1.005-1.030); URINE UROBILINOGEN 0.2 E.U./dl (0.2-1.0)
[2019-10-25 20:37] LABS: URINE CLARITY HAZY; URINE LEUKOCYTES-REFLEX 3+ (Negative)
[2019-10-25 20:39] LABS: BACTERIA-REFLEX 1-9 Few /HPF (None Seen); CASTS None Seen /LPF (None Seen); CRYSTALS None Seen /LPF (None Seen); SQUAMOUS 4-10 Moderate /LPF (0-3); URINE RBC None Seen /HPF (0-2); URINE WBC-REFLEX 6-15 Few /HPF (0-5)
[2019-10-25 20:45] LABS: BE -2.3 mmol/L (-2 to +3); PCO2 33.7 mmHg (35.0-45.0); PO2 94.6 mmHg (75.0-100.0); pH 7.421 (7.340-7.450)
[2019-10-25 21:11] LABS: HEMATOCRIT 34.7 % (37.0-47.0); HEMOGLOBIN 11.9 gm/dL (12.0-15.0); MCH 31.3 pg (26.0-34.0); MCHC 34.4 g/dL (28.0-37.0); MCV 91.1 fL (80.0-100.0); MPV 8.4 fl. (7.2-11.1); NUCLEATED RBCS 0 /100WBC; PLATELET COUNT* 215 thou/uL (150-400); RBC 3.81 mil/uL (4.20-5.00); RDW-CV 16.5 % (10.5-14.5); WBC 8.2 thou/uL (4.0-11.0)
[2019-10-25 21:18] LABS: CALCIUM 8.1 mg/dL (8.5-10.1); CREATININE 0.9 mg/dL (0.6-1.3); POTASSIUM 3.7 mmol/L (3.5-5.1)
[2019-10-25] MEDS ORDERED: MACROBID 100 M100 M1 PO (21:20)
[2019-10-25] MEDS ORDERED: MIRAPEX0.5 MG PO (21:20)
[2019-10-25] MEDS ORDERED: TIZANIDINE HCL4 M1 PO (21:20)
[2019-10-25 21:22] LABS: ALBUMIN 3.7 g/dL (3.4-5.0); TOTAL BILIRUBIN 0.5 mg/dL (<0.1-1.0); TOTAL PROTEIN 6.6 g/dL (6.4-8.2)
[2019-10-25 21:44] LABS: ABSOLUTE EOSINOPHILS 0.2 thou/uL (0.0-0.7); ABSOLUTE LYMPHOCYTES 2.6 thou/uL (0.8-5.3); ABSOLUTE MONOCYTES 0.5 thou/uL (0.0-1.2); ABSOLUTE NEUTROPHILS 4.8 thou/uL (1.6-8.1); ATYPICAL LYMPHS 1 %
[2019-10-25 21:46] LABS: PLATELET ESTIMATE ADEQUATE
[2019-10-25 22:12] VITALS: BP 135/74
== END 2019-10-25 22:13 | disposition home or self-care (01) ==
LOC: M.ERS 19:45
PROVIDERS: Personal Emergency Response Attendant
DX: N39.0 Urinary tract infection, site not specified (principal); G25.81 Restless legs syndrome; I10 Essential (primary) hypertension; M19.90 Unspecified osteoarthritis, unspecified site; Z90.711 Acquired absence of uterus with remaining cervical stump; Z95.5 Presence of coronary angioplasty implant and graft; Z87.442 Personal history of urinary calculi; Z88.1 Allergy status to other antibiotic agents; Z88.8 Allergy status to other drugs, medicaments and biological substances

== ENCOUNTER 2019-12-20 12:06 | Inpatient (IN) | payer OTHER ==
[~2019-12-20] VITALS: Ht 144.8 cm; Wt 66.7 kg
[~2019-12-20 12:06] MED LIST changes: +APAP W/CODEINE1 TA2 PO; +MAGNESIUM250 M1 PO; +SPIRONOLACTONE25 MG PO; +TIZANIDINE HCL4 M1 PO; -TYLENOL WITH CO1 TA1 PO
[2019-12-20 12:13] VITALS: BP 198/98
[2019-12-20 12:44] LABS: ABSOLUTE BASOPHILS 0.1 thou/uL (0.0-0.2); ABSOLUTE EOSINOPHILS 0.1 thou/uL (0.0-0.7); ABSOLUTE LYMPHOCYTES 2.9 thou/uL (0.8-5.3); ABSOLUTE MONOCYTES 0.7 thou/uL (0.0-1.2); ABSOLUTE NEUTROPHILS 6.2 thou/uL (1.6-8.1); BASOPHILS 0.7 %; EOSINOPHILS 0.5 %; HEMATOCRIT 34.1 % (37.0-47.0); HEMOGLOBIN 11.4 gm/dL (12.0-15.0); LYMPHOCYTES 28.9 %; MCH 30.2 pg (26.0-34.0); MCHC 33.6 g/dL (28.0-37.0); MCV 90.1 fL (80.0-100.0); MPV 7.5 fl. (7.2-11.1); NUCLEATED RBCS 0 /100WBC; PLATELET COUNT* 226 thou/uL (150-400); POLYS 62.9 %; RBC 3.78 mil/uL (4.20-5.00); RDW-CV 14.3 % (10.5-14.5); WBC 9.9 thou/uL (4.0-11.0)
[2019-12-20 12:53] LABS: CREATININE 0.9 mg/dL (0.6-1.3); POTASSIUM 3.7 mmol/L (3.5-5.1)
[2019-12-20 13:04] LABS: ALBUMIN 3.7 g/dL (3.4-5.0); MAGNESIUM 1.9 mg/dL (1.8-2.4); TOTAL BILIRUBIN 0.5 mg/dL (<0.1-1.0); TOTAL PROTEIN 6.9 g/dL (6.4-8.2)
[2019-12-20 13:13] LABS: URINE BILIRUBIN NEGATIVE (Negative); URINE BLOOD NEGATIVE (Negative); URINE CLARITY CLEAR; URINE COLOR YELLOW; URINE GLUCOSE-RANDOM NEGATIVE (Negative); URINE KETONES NEGATIVE (Negative); URINE LEUKOCYTES-REFLEX 1+ (Negative); URINE NITRITE-REFLEX NEGATIVE (Negative); URINE PROTEIN NEGATIVE (Negative); URINE UROBILINOGEN 0.2 E.U./dl (0.2-1.0)
[2019-12-20 13:22] LABS: BACTERIA-REFLEX 1-9 Few /HPF (None Seen); CASTS None Seen /LPF (None Seen); CRYSTALS None Seen /LPF (None Seen); SQUAMOUS 0-3 Few /LPF (0-3); URINE RBC 0-2 Rare /HPF (0-2); URINE WBC-REFLEX 0-5 Rare /HPF (0-5)
[2019-12-20 15:46] LABS: APTT 23.1 Seconds (25.0-31.3); PROTIME 9.9 Seconds (9.20-11.50)
[2019-12-20 15:56] VITALS: BP 137/55
[2019-12-20 16:15] VITALS: BP 148/63
[2019-12-20 20:34] VITALS: BP 106/52
[2019-12-21] VITALS (7 sets, daily range): BP systolic 116–136; BP diastolic 59–91
[2019-12-21 05:27] LABS: ABSOLUTE BASOPHILS 0.1 thou/uL (0.0-0.2); ABSOLUTE EOSINOPHILS 0.1 thou/uL (0.0-0.7); ABSOLUTE LYMPHOCYTES 2.6 thou/uL (0.8-5.3); ABSOLUTE MONOCYTES 0.6 thou/uL (0.0-1.2); ABSOLUTE NEUTROPHILS 6.7 thou/uL (1.6-8.1); BASOPHILS 0.6 %; EOSINOPHILS 0.7 %; HEMATOCRIT 34.1 % (37.0-47.0); HEMOGLOBIN 11.2 gm/dL (12.0-15.0); LYMPHOCYTES 26.1 %; MCH 29.9 pg (26.0-34.0); MCHC 32.8 g/dL (28.0-37.0); MCV 91.3 fL (80.0-100.0); MONOCYTES 6.3 %; MPV 7.9 fl. (7.2-11.1); NUCLEATED RBCS 0 /100WBC; PLATELET COUNT* 217 thou/uL (150-400); POLYS 66.3 %; RBC 3.74 mil/uL (4.20-5.00); RDW-CV 14.3 % (10.5-14.5); WBC 10.1 thou/uL (4.0-11.0)
[2019-12-21 05:51] LABS: CALCIUM 8.7 mg/dL (8.5-10.1); CREATININE 1.1 mg/dL (0.6-1.3); POTASSIUM 3.7 mmol/L (3.5-5.1)
--- NOTE | 2019-12-21 18:25 | EKG ---
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
[2019-12-22] VITALS (21 sets, daily range): BP systolic 95–139; BP diastolic 46–88
[2019-12-22 05:19] LABS: ABSOLUTE BASOPHILS 0.1 thou/uL (0.0-0.2); ABSOLUTE EOSINOPHILS 0.1 thou/uL (0.0-0.7); ABSOLUTE LYMPHOCYTES 2.4 thou/uL (0.8-5.3); ABSOLUTE MONOCYTES 0.6 thou/uL (0.0-1.2); ABSOLUTE NEUTROPHILS 6.4 thou/uL (1.6-8.1); BASOPHILS 0.8 %; EOSINOPHILS 0.9 %; HEMATOCRIT 35.1 % (37.0-47.0); HEMOGLOBIN 11.8 gm/dL (12.0-15.0); LYMPHOCYTES 24.9 %; MCH 30.5 pg (26.0-34.0); MCHC 33.7 g/dL (28.0-37.0); MCV 90.6 fL (80.0-100.0); MONOCYTES 6.6 %; NUCLEATED RBCS 0 /100WBC; PLATELET COUNT* 228 thou/uL (150-400); POLYS 66.8 %; RBC 3.88 mil/uL (4.20-5.00); RDW-CV 14.5 % (10.5-14.5); WBC 9.5 thou/uL (4.0-11.0)
[2019-12-22 05:31] LABS: PROTIME 10.3 Seconds (9.20-11.50)
[2019-12-22 05:34] LABS: ANION GAP 10 mmol/L (7-16); BUN 19 mg/dL (7-18); CALCIUM 9.1 mg/dL (8.5-10.1); CHLORIDE 102 mmol/L (98-107); CHOLESTEROL 190 mg/dL (<200); CO2 27 mmol/L (21-32); CREATININE 1.1 mg/dL (0.6-1.3); GLUCOSE 112 mg/dL (70-99); HDL CHOLESTEROL 54 mg/dL (>40); LDL CHOLESTEROL 118 mg/dL (<100); POTASSIUM 3.8 mmol/L (3.5-5.1); SODIUM 139 mmol/L (136-145); TC:HDL 3.5 Ratio (Not establshd); TRIGLYCERIDE 90 mg/dL (<150); VLDL 18 mg/dL (<40)
[2019-12-22 05:43] LABS: SERUM ASSESSMENT Clear
[2019-12-23] VITALS (7 sets, daily range): BP systolic 104–140; BP diastolic 60–95
[2019-12-23 04:22] LABS: ABSOLUTE EOSINOPHILS 0.1 thou/uL (0.0-0.7); ABSOLUTE LYMPHOCYTES 1.4 thou/uL (0.8-5.3); ABSOLUTE MONOCYTES 0.6 thou/uL (0.0-1.2); ABSOLUTE NEUTROPHILS 5.1 thou/uL (1.6-8.1); BASOPHILS 0.4 %; EOSINOPHILS 1.6 %; HEMATOCRIT 32.6 % (37.0-47.0); LYMPHOCYTES 19.1 %; MCH 30.4 pg (26.0-34.0); MCHC 33.7 g/dL (28.0-37.0); MCV 90.3 fL (80.0-100.0); MONOCYTES 8.2 %; MPV 8.1 fl. (7.2-11.1); NUCLEATED RBCS 0 /100WBC; POLYS 70.7 %; RBC 3.61 mil/uL (4.20-5.00); RDW-CV 14.5 % (10.5-14.5); WBC 7.2 thou/uL (4.0-11.0)
[2019-12-23 04:29] LABS: PLATELET COUNT* 101 thou/uL (150-400)
[2019-12-23 04:56] LABS: CREATININE 0.8 mg/dL (0.6-1.3); POTASSIUM 3.5 mmol/L (3.5-5.1)
[2019-12-23] MEDS ORDERED: SPIRONOLACTONE25 MG PO (12:58)
[2019-12-23] MEDS ORDERED: EFFIENT10 MG PO (12:58)
--- NOTE | 2019-12-24 10:46 | CON ---
[address] [address] CONSULTATION Name: CONSTANTINO AUGAYO Room: [address] IN .Rachel.#: [id number] Admission: 12/21/19 Attend Phys: Johnny Barnes MD Discharge: 12/23/19 Date of : 39 Report #: [id number] THIS REPORT FOR: //name// cc: Mala Reis NP, Elizabeth NP ~ THIS REPORT FOR: //name// DATE OF SERVICE: 12/21/2019 CARDIOLOGY CONSULTATION HISTORY OF PRESENT ILLNESS: The patient is a very pleasant 79-year-old female with a history of coronary artery disease, status post remote PCI in 2007. Apparently, catheterization in 2015 revealed an occluded diagonal with no significant stenosis of the other vessels. Yesterday, while sitting in anabaptism, she developed central chest pain, which persisted. This did not go away and she ultimately sought assistance in the [facility] ER. She had no EKG evidence for acute injury and she received analgesic therapy with morphine with pain remitting gradually. She is pain free at present. Sequential troponins revealed a peak value of 0.42. EKGs are unremarkable. Risk factors for coronary artery disease include hypertension and hyperlipidemia. PAST MEDICAL HISTORY: Remarkable for gastroesophageal reflux disease, hypertension, hyperlipidemia, arthritis as well as modest weight excess. PHYSICAL EXAMINATION: GENERAL: Reveals an undistressed elderly female. VITAL SIGNS: Blood pressure is 140/70, pulse rate is 72, respirations are 18 per minute. NECK: Jugular venous pressure is normal. CHEST: Clear. CARDIAC: Reveals normal first and second heart sounds without murmurs or gallops. ABDOMEN: Moderately obese. EXTREMITIES: Without edema with intact femoral, pedal, and radial pulses. LABORATORY DATA: Reveals troponins are 0.06, 0.06, and 0.42. EKGs reveal they demonstrate sinus rhythm without acute injury. IMPRESSION: 1. Zft-UU-hnrqvhb elevation myocardial infarction. 2. Coronary artery disease, [place] [address] CONSULTATION Name: CONSTANTINO AGUAYO Room: [address] IN M.R.#: [id number] Admission: 12/21/19 Attend Phys: Johnny Barnes MD Discharge: 12/23/19 Date of : 39 Report #: [id number] 3. Hypercholesterolemia. 4. Hypertension. RECOMMENDATIONS: 1. Continue heparin. 2. Would plan catheterization in a.m. with definition of current anatomy and prospects for subsequent therapeutic modification. Critical care time is 35 minutes from 12:55 to 13:30 on 12/21/2019. <ELECTRONICALLY SIGNED> By: Nahid Lee MD, [facility] 12/24/19 1046 1328 1334John Jennifer Lee MD, FACC /nt
--- NOTE | 2019-12-24 16:25 | CARD ---
[address] [address] CARDIAC CATH REPORT Name: HECTOR AGUAYOOrestes Fox Room: [address]#: [id number] Admission: 12/21/19 Attend Phys: Johnny Barnes MD Discharge: 12/23/19 Date of : 39 Report #: [id number] THIS REPORT FOR: //name// cc: Mala Reis NP, Elizabeth NP ~ APPROVED REPORT Study performed: 12/22/2019 10:22:42 Patient Details Patient Status: In-Patient Room #: The patient is a 79 year-old female Event Personnel Adolph Lagunas Extractor Puller, Ilana Rodriguez RTR Scrub, Marlon Brasher RTR Monitor, Dinora Guo RN RN, Estrella Florian RTR Monitor Dr. Lee Procedures Performed Art Access - R femoral artery, Left Heart Cath w/or w/o Coronaries LHC , ANTELMO Place w/wo Plasty Single LAD , Hemostasis w/ Mynx Indication Non-STEMI Risk Factors Hypercholesterolemia, Hypertension Admission/Lab Medications/Medications given during procedure Lidocaine Subcut 20 ml, Fentanyl IV 25 mcg, Midazolam (Versed) IV 1 mg, Angiomax IV 10 ml, Angiomax IV 23.45 ml per hr, Aspirin PO 81 mg, Effient PO 60 mg Procedure Narrative The patient was brought electively to the Cardiac Catheterization Laboratory and was prepped and draped in a sterile manner. The right femoral was infiltrated with 2% Lidocaine subcutaneous anesthesia. A [place] 6 FR sheath was inserted into the right femoral artery. Coronary angiography was performed using coronary diagnostic catheters. The right coronary system was accessed and visualized with a 6Fr JR4 catheter. The left coronary system was accessed and visualized with a 6Fr JL3.5 catheter. The left ventricle was accessed and visualized with a 6Fr Straight Pig[place] [address] CARDIAC CATH REPORT Name: CONSTANTINO AGUAYO Room: [address]#: [id number] Admission: 12/21/19 Attend Phys: Johnny Barnes MD Discharge: 12/23/19 Date of : 39 Report #: [id number] ventricular/Aortic Valve gradient assessed via catheter pullback. Left ventriculogram was performed in ECHEVARRIA projection. Pre-demployment femoral angiogram was performed . Closure device was deployed with a 6 Fr Mynx. The patient tolerated the procedure well and there were no complications associated with the procedure. There was no hematoma. Intraoperative Conscious Sedation Sedation start time: 11:58 Case end Time: 12:59 Fentanyl 25 mcg Versed 2 mg Fluoro Time: 19.4 minutes Dose: DAP 039675 cGycm2 3045 mGy Contrast Type and Amount: Visipaque 255 ml Diagnostic Cath Left Main 0% narrowing LAD 90% calcified mid LAD stenosis Circumflex 40% proximal narrowing Right Coronary 30% narrowing of the proximal and mid portion of the right coronary artery with 90% stenosis of the proximal portion of the posterior descending branch with 50% diffuse distal PDA narrowing Left Ventriculography The left ventricle is normal in size with normal contractility. The left ventricular ejection fraction is estimated to be 65%. Left ventricular wall motion abnormalities are not present. There is no mitral insufficiency. Hemodynamics The aortic pressure is 135/52 mmHg with a mean of 53 mmHg. The left ventricular pressure is 151/11 mmHg with a mean of mmHg. The left ventricular end diastolic pressure is 22 mmHg. There was no gradient across the aortic valve upon pullback. PCI Technique Lesion Anticoagulation was achieved with Angiomax. Patient was preloaded with Angiomax IV 10 ml. Percutaneous coronary intervention was performed on the proximal left anterior descending artery segment. A 6F XB LAD 3.5 Guide Catheter was used to engage the Left ostium. A BMW 190cm Interventional Guidewire was used to cross the lesion[place] [address] CARDIAC CATH REPORT Name: CONSTANTINO AGUAYO Room: [address]#: [id number] Admission: 12/21/19 Attend Phys: Johnny Barnes MD Discharge: 12/23/19 Date of : 39 Report #: [id number] A Balloon catheter Trek RX 2.25 X 15 was inserted and inflated up to 10.00atm for 8seconds. Additional Inflation: 14.00atm for 10seconds. Additional Inflation: 18.00atm for 11seconds. A Balloon Catheter NC Euphore 2.5 X 12 was inserted and inflated up to 16.00 bradley for 19 seconds. Additional Inflation: 16.00 bradley for 8 seconds. Additional Inflation: 16.00 bradley for 6 seconds. STENT DEPLOYMENT A drug-eluting stent Irwin RX Stent 2.25C19ig was inserted and inflated up to 12.00atm for 10seconds. POST STENT DEPLOYMENT BALLOON DILATION A Balloon catheter NC Euphora 2.5x12 was inserted and inflated up to 10.00atm for 9seconds. A Drug- Eluting Stent [place] 2.0X8mm RX stent was inserted and inflated up to 12.00 bradley for 7 seconds. Additional Inflation: 14.00 bradley for 8 seconds. Additional Inflation: 16 bradley for 10 seconds. Final angiography reveals 5 % stenosis with ARIEL 3 flow. COMMENTS The PCI was technically complex by virtue of severe calcification of the mid LAD requiring significant lesion preparation prior to stent deployment. Conclusion 1. Significant multivessel coronary artery disease characterized by the following: A 90% calcified mid LAD stenosis B 40% proximal circumflex narrowing C dominant right coronary artery with 30% proximal and mid vessel narrowing with 90% proximal posterior descending branch narrowing followed by 50% diffuse distal disease 2. Normal left ventricular systolic function, estimated ejection fraction being 65% 3. Moderate elevation of left ventricular end-diastolic pressure at rest 4. Successful PCI with deployment of sequential drug-eluting stents at the site of 90% calcified mid LAD stenosis with 0% residual [address] [address] CARDIAC CATH REPORT Name: CONSTANTINO AGUAYO Room: [address] IN ..#: [id number] Admission: 12/21/19 Attend Phys: Johnny Barnes MD Discharge: 12/23/19 Date of : 38 Report #: [id number] narrowing and ARIEL-3 flow to the distal vessel Recommendations Cardiac Risk Reduction Program Aggressive Medical Therapy Medications Administered Aspirin (any) Prasugrel Diagnostic Cath Approved by: Adolph Lagunas MD Date/Time: 12/24/2019 16:22:21 <ELECTRONICALLY SIGNED> By: Nahid Lee MD, FACC 12/24/19 1625 1625 1625Nahid Lee MD, FACC /INF
== END 2019-12-23 14:45 | disposition home or self-care (01) | DRG 247 ==
LOC: M.ERS 12:06 → M.TBA-ER 14:28 → M.2W 14:28
PROVIDERS: Internal Medicine; Nurse Practitioner Family; ADMIT Internal Medicine; ATTEND Internal Medicine
PROC: B211YZZ Fluoroscopy of Multiple Coronary Arteries using Other Contrast (ICD-10-PCS; principal; 2019-12-22)
PROC: 027035Z Dilation of Coronary Artery, One Artery with Two Drug-eluting Intraluminal Devices, Percutaneous Approach (ICD-10-PCS; principal; 2019-12-22)
PROC: 4A023N7 Measurement of Cardiac Sampling and Pressure, Left Heart, Percutaneous Approach (ICD-10-PCS; principal; 2019-12-22)
PROC: B215YZZ Fluoroscopy of Left Heart using Other Contrast (ICD-10-PCS; principal; 2019-12-22)
DX: I21.4 Non-ST elevation (NSTEMI) myocardial infarction (principal); M19.90 Unspecified osteoarthritis, unspecified site; I10 Essential (primary) hypertension; I25.10 Atherosclerotic heart disease of native coronary artery without angina pectoris; K21.9 Gastro-esophageal reflux disease without esophagitis; E78.5 Hyperlipidemia, unspecified; E78.00 Pure hypercholesterolemia, unspecified; Z20.828 Contact with and (suspected) exposure to other viral communicable diseases; Z98.41 Cataract extraction status, right eye; Z88.8 Allergy status to other drugs, medicaments and biological substances; Z90.711 Acquired absence of uterus with remaining cervical stump; Z95.5 Presence of coronary angioplasty implant and graft; Z88.5 Allergy status to narcotic agent; Z79.82 Long term (current) use of aspirin; Z79.899 Other long term (current) drug therapy

== ENCOUNTER → 2020-02-03 | Outpatient (CLI) | payer OTHER ==
[~2020-02-03] MED LIST changes: +EFFIENT10 MG PO
== END ==
LOC: M.PC 08:23
PROVIDERS: ATTEND Physical Medicine & Rehabilitation
DX: M47.26 Other spondylosis with radiculopathy, lumbar region (principal); M51.16 Intervertebral disc disorders with radiculopathy, lumbar region; M79.605 Pain in left leg; M16.11 Unilateral primary osteoarthritis, right hip; Z87.891 Personal history of nicotine dependence; Z79.899 Other long term (current) drug therapy

== ENCOUNTER 2020-04-15 10:10 | Emergency (ER) | payer OTHER ==
[~2020-04-15] VITALS: Ht 147.3 cm; Wt 67.1 kg
[2020-04-15 12:05] VITALS: BP 135/82
== END 2020-04-15 12:05 | disposition home or self-care (01) ==
LOC: M.ERS 10:10
DX: S80.12XA Contusion of left lower leg, initial encounter (principal); I10 Essential (primary) hypertension; Z95.5 Presence of coronary angioplasty implant and graft; Z90.710 Acquired absence of both cervix and uterus; Z88.1 Allergy status to other antibiotic agents; Z88.8 Allergy status to other drugs, medicaments and biological substances; X58.XXXA Exposure to other specified factors, initial encounter; Y93.89 Activity, other specified; Y92.89 Other specified places as the place of occurrence of the external cause; Y99.8 Other external cause status

== ENCOUNTER → 2020-05-02 | Outpatient (CLI) | payer OTHER ==
[2020-05-02 15:36] LABS: HEMATOCRIT 33.8 % (37.0-47.0); MCH 27.8 pg (26.0-34.0); MCHC 32.5 g/dL (28.0-37.0); MCV 85.5 fL (80.0-100.0); MPV 7.5 fl. (7.2-11.1); RBC 3.95 mil/uL (4.20-5.00); RDW-CV 16.7 % (10.5-14.5); WBC 7.9 thou/uL (4.0-11.0)
== END ==
LOC: M.LAB 15:17
PROVIDERS: ATTEND Internal Medicine Cardiovascular Disease
DX: R06.02 Shortness of breath (principal)

== ENCOUNTER → 2020-06-27 | Outpatient (CLI) | payer OTHER | LOC: M.PC 10:10 | PROVIDERS: ATTEND Physical Medicine & Rehabilitation | DX: M47.26 Other spondylosis with radiculopathy, lumbar region (principal); M79.604 Pain in right leg; M79.605 Pain in left leg; M53.3 Sacrococcygeal disorders, not elsewhere classified ==

== ENCOUNTER → 2020-07-04 | Outpatient (CLI) | payer OTHER | END | disposition home or self-care (01) | LOC: M.PC 08:54 | PROVIDERS: ATTEND Physical Medicine & Rehabilitation | DX: M53.3 Sacrococcygeal disorders, not elsewhere classified (principal); M47.898 Other spondylosis, sacral and sacrococcygeal region; M54.5 Low back pain; I10 Essential (primary) hypertension; I25.10 Atherosclerotic heart disease of native coronary artery without angina pectoris; Z98.890 Other specified postprocedural states; Z79.899 Other long term (current) drug therapy; Z79.82 Long term (current) use of aspirin; Z88.8 Allergy status to other drugs, medicaments and biological substances | CPT/HCPCS: G0260 ==

== ENCOUNTER → 2020-07-13 | Outpatient (CLI) | payer OTHER | LOC: M.PC 08:59 | PROVIDERS: ATTEND Physical Medicine & Rehabilitation | DX: M51.16 Intervertebral disc disorders with radiculopathy, lumbar region (principal); M47.26 Other spondylosis with radiculopathy, lumbar region; M47.28 Other spondylosis with radiculopathy, sacral and sacrococcygeal region; M16.11 Unilateral primary osteoarthritis, right hip ==

== ENCOUNTER 2020-07-28 15:42 | Inpatient (IN) | payer OTHER ==
[~2020-07-28] VITALS: Ht 144.8 cm; Wt 64.0 kg
[2020-07-28 15:50] VITALS: BP 163/78
[2020-07-28 16:15] LABS: ABSOLUTE EOSINOPHILS 0.1 thou/uL (0.0-0.7); ABSOLUTE MONOCYTES 0.4 thou/uL (0.0-1.2); ABSOLUTE NEUTROPHILS 4.3 thou/uL (1.6-8.1); BASOPHILS 0.4 %; EOSINOPHILS 0.8 %; HEMATOCRIT 35.5 % (37.0-47.0); HEMOGLOBIN 11.9 gm/dL (12.0-15.0); LYMPHOCYTES 29.4 %; MCH 30.5 pg (26.0-34.0); MCHC 33.3 g/dL (28.0-37.0); MCV 91.5 fL (80.0-100.0); MONOCYTES 6.2 %; MPV 7.4 fl. (7.2-11.1); NUCLEATED RBCS 0 /100WBC; PLATELET COUNT* 202 thou/uL (150-400); POLYS 63.2 %; RBC 3.89 mil/uL (4.20-5.00); RDW-CV 20.3 % (10.5-14.5); WBC 6.9 thou/uL (4.0-11.0)
[2020-07-28 16:22] LABS: CALCIUM 8.8 mg/dL (8.5-10.1); POTASSIUM 3.8 mmol/L (3.5-5.1)
[2020-07-28 16:33] LABS: ALBUMIN 3.3 g/dL (3.4-5.0); TOTAL BILIRUBIN 0.4 mg/dL (<0.1-1.0); TOTAL PROTEIN 6.6 g/dL (6.4-8.2)
[2020-07-28 16:43] LABS: ANISOCYTOSIS 2+; HYPOCHROMASIA Occasional; PLATELET ESTIMATE ADEQUATE
[2020-07-28 16:44] LABS: MACROCYTES Occasional
[2020-07-28 19:09] VITALS: BP 142/78
[2020-07-29] VITALS (12 sets, daily range): BP systolic 120–1126; BP diastolic 58–88
--- NOTE | 2020-07-29 09:34 | EKG ---
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: INOCENCIO : 1940 Requested By: Gutierrez Lima Order Number: [id number] MD: Marques Matute Measurements Intervals [place] Rate: 80 P: 15 PA: 153 QRS: 34 QRSD: 89 T: 53 QT: 375 QTc: 433 Interpretive Statements Sinus rhythm Multiple ventricular premature complexes Low voltage, precordial leads Abnormal R-wave progression, early transition Compared to ECG 12/20/2019 12:12:35 Ventricular premature complex(es) now present Electronically Signed On 07-29-2020 9:34:27 CDT by Marques Matute [email or web address] <ELECTRONICALLY SIGNED> By: Marques Matute MD, FAC 07/29/20 0934 1547 1547 Marques Matute MD, [facility] /EPI
--- NOTE | 2020-07-29 09:39 | EKG ---
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: [id number] : 1940 Requested By: Mavis Peoples Order Number: [id number] Reading MD: Marques Matute Measurements Intervals [place] Rate: 73 P: 22 IN: 172 QRS: 14 QRSD: 83 T: 47 QT: 392 QTc: 432 Interpretive Statements Incomplete analysis due to missing data in precordial lead(s) Sinus rhythm Multiple ventricular premature complexes Missing lead(s): V6 Compared to ECG 07/28/2020 15:47:47 No significant changes Electronically Signed On 07-29-2020 9:39:07 CDT by Marques Matute [email or web address] <ELECTRONICALLY SIGNED> By: Marques Matute MD, [facility] 07/29/20 0939 0328 Marques Matute MD, [facility] /EPI
[2020-07-30 00:40] VITALS: BP 104/59
[2020-07-30 04:57] VITALS: BP 125/76
[2020-07-30 05:49] LABS: ABSOLUTE EOSINOPHILS 0.1 thou/uL (0.0-0.7); ABSOLUTE LYMPHOCYTES 1.5 thou/uL (0.8-5.3); ABSOLUTE NEUTROPHILS 3.6 thou/uL (1.6-8.1); HEMOGLOBIN 11.4 gm/dL (12.0-15.0); MCH 30.1 pg (26.0-34.0); WBC 5.6 thou/uL (4.0-11.0)
[2020-07-30 05:55] LABS: ABSOLUTE MONOCYTES 0.4 thou/uL (0.0-1.2); BASOPHILS 0.4 %; HEMATOCRIT 34.8 % (37.0-47.0); MCHC 32.8 g/dL (28.0-37.0); MCV 91.6 fL (80.0-100.0); MONOCYTES 7.5 %; MPV 7.7 fl. (7.2-11.1); NUCLEATED RBCS 0 /100WBC; PLATELET COUNT* 148 thou/uL (150-400); POLYS 64.1 %; RDW-CV 20.2 % (10.5-14.5)
[2020-07-30 06:07] LABS: ANION GAP 7 mmol/L (7-16); BUN 19 mg/dL (7-18); CHLORIDE 105 mmol/L (98-107); CHOLESTEROL 166 mg/dL (<200); CO2 26 mmol/L (21-32); CREATININE 0.9 mg/dL (0.6-1.3); GLUCOSE 104 mg/dL (70-99); HDL CHOLESTEROL 48 mg/dL (>40); LDL CHOLESTEROL 108 mg/dL (<100); POTASSIUM 4.2 mmol/L (3.5-5.1); SODIUM 138 mmol/L (136-145); TC:HDL 3.5 Ratio (Not establshd); TRIGLYCERIDE 53 mg/dL (<150); VLDL 11 mg/dL (<40)
[2020-07-30 06:11] LABS: SERUM ASSESSMENT Clear
[2020-07-30 07:41] LABS: ANISOCYTOSIS 2+; PLATELET ESTIMATE DECREASED
[2020-07-30] MEDS ORDERED: IMDUR 30 MG TAB30 M1 PO (08:31)
[2020-07-30] MEDS ORDERED: ZETIA10 MG PO (08:31)
[2020-07-30 09:00] VITALS: BP 109/70
[2020-07-30 10:35] VITALS: BP 109/70
--- NOTE | 2020-08-01 12:46 | CON ---
[address] [address] CONSULTATION Name: CONSTANTINO AGUAYO Dominique Room: [address] IN Dash.Rachel.#: [id number] Admission: 07/28/20 Attend Phys: Mavis Peoples MD Discharge: 07/30/20 Date of : 38 Report #: [id number] THIS REPORT FOR: cc: Mala Reis NP, Elizabeth NP Blick, David R. MD [facility] ~ DOC #: [id number] cc: MARICARMEN Ledezma MD [facility] DATE OF CONSULTATION: 07/29/2020 CARDIOLOGY CONSULTATION HISTORY OF PRESENT ILLNESS: The patient is an 79-year-old white female who I was asked to see in the hospital today after she had an episode of chest pain. The patient initially presented back in 2007 with chest pain. She was seen by Dr. Calix and transferred to [facility], had a coronary stent placed. She was then admitted to [facility] last December with chest pain. She had two additional coronary stents placed. She has done well since that time. Recently, she has been followed by my partner, Dr. Lagunas. She is not very active because of arthritis. Yesterday, she was at home when she felt a pressure in her chest, went into her jaw, she became short of breath. She was brought here to [facility] by her . She was given a nitroglycerin and the pain resolved. She denies any recent fever, cough, bleeding, trauma to her chest, rash. The pain was not related to food. She denies exertional dyspnea, palpitations, or syncope. PAST MEDICAL HISTORY: She has had previous cholecystectomy, cataract extraction, cervical spine surgery. She has a history of hypertension, hyperlipidemia. CURRENT MEDICATIONS: Include aspirin, carvedilol, Pepcid, Mobic, Protonix, Effient, Requip, Aldactone, albuterol inhaler for asthma. ALLERGIES: SHE HAS A PREVIOUS INTOLERANCE TO STATIN DRUGS, DIOGO INHIBITORS, CIPRO, DEMEROL. REVIEW OF SYSTEMS: She has seasonal allergies. No history of stroke, liver disease, kidney disease, cancer, psychiatric illness, chronic skin condition. PHYSICAL EXAMINATION: GENERAL: Revealed an elderly female who is very short. She is 4 feet 9 inches, 143 pounds. VITAL SIGNS: She had a blood pressure 120/60, pulse is 70, [place] [address] CONSULTATION Name: CONSTANTINO AGUAYO Room: [address]#: [id number] Admission: 07/28/20 Attend Phys: Mavis Peoples MD Discharge: 07/30/20 Date of : 38 Report #: [id number] HEENT: She was anicteric. Conjunctivae pink. Mucous membranes are moist. NECK: Veins do not appear distended. No carotid bruits. Neck is supple. CHEST: Clear to auscultation. CARDIAC: Regular rate and rhythm. ABDOMEN: Soft. EXTREMITIES: Has had no edema. Dorsalis pedis pulse 3+. SKIN: Cool and dry. NEUROLOGIC: Nonfocal. IMAGING DATA: Her ECG showed a sinus rhythm, PVC. There is no significant ST-T wave changes noted. On her workup in the emergency room yesterday, she had a portable chest x-ray, normal heart size, clear lung barclay. LABORATORY WORK: Sodium 137, creatinine 1.0. Her troponins were all 0.06. Her white blood cell count 6.9, hematocrit 35.3. IMPRESSION AND RECOMMENDATIONS: 1. Unstable angina. Consider repeat cardiac catheterization. 2. Hypertension. The patient is on a beta jackie. 3. Hyperlipidemia. The patient cannot tolerate STATIN DRUGS. 4. Chronic back pain. 5. Restless leg syndrome. Marques Matute MD [facility] [place] <ELECTRONICALLY SIGNED> By: Marques Matute MD, [facility] 08/01/20 1246 0746 0830Marques Matute MD, [facility] /nt
--- NOTE | 2020-08-10 14:43 | CARD ---
[address] [address] CARDIAC CATH REPORT Name: CONSTANTINO AGUAYO Room: [address]#: [id number] Admission: 07/28/20 Attend Phys: Mavis Peoples MD Discharge: 07/30/20 Date of : 38 Report #: [id number] THIS REPORT FOR: cc: Mala Reis NP, Elizabeth NP Blick, David R. MD [facility] ~ APPROVED REPORT Study performed: 07/29/2020 14:40:00 Patient Details Patient Status: In-Patient Room #: The patient is a 79 year-old female Event Personnel Marques Matute Blanching Machine Operator, Marlon Brasher RTR ScrubMichael Becki RTR Monitor, Suki Holland RN Circulate Procedures Performed Art Access - R femoral artery , Left Heart Cath w/or w/o Coronaries LHC , Hemostasis w/ Mynx Indication Chest pain Risk Factors Arterial Hypertension, Hypercholesterolemia Previous Procedures/Diagnoses Previous PCI Procedure Narrative The patient was brought electively to the Cardiac Catheterization Laboratory and was prepped and draped in a sterile manner. The right femoral was infiltrated with 2% Lidocaine subcutaneous anesthesia. IV conscious sedation was used throughout procedure with appropriate monitoring and was performed in the presence of a registered nurse who was an independent trained observer other than the physician performing the procedure. A 6F [place] sheath was inserted into the right femoral artery. Coronary angiography was performed using coronary diagnostic catheters. The right coronary system was accessed and visualized with a 6F JR4 catheter. The left coronary system was accessed and visualized with a 6F JL4 catheter. The left ventricle was accessed and visualized with a 6[place] [address] CARDIAC CATH REPORT Name: TACOSKhalidaJANESSAHECTOROrestes Fox Room: [address]#: [id number] Admission: 07/28/20 Attend Phys: Mavis Peoples MD Discharge: 07/30/20 Date of : 38 Report #: [id number] ventricular/Aortic Valve gradient assessed via catheter pullback. Left ventriculogram was performed in [place] projection. Closure device was deployed with a 6 Fr 6F Mynx. The patient tolerated the procedure well and there were no complications associated with the procedure. There was no hematoma. Intraoperative Conscious Sedation Sedation start time: 15:14 Case end Time: 15:40 Versed 1 mg Fluoro Time: 1.2 minutes Dose: DAP 55936 cGycm2 365 mGy Contrast Type and Amount: Visipaque 70 ml Coronary Angiography The patient's coronary anatomy is right dominant. Diagnostic Cath Left Main 0% stenosis LAD stent in proximal and mid lad had 0% restenosis Circumflex 40% stenosis prior to the stents. Stent in proximal circumflex that extended into the first marginal branch had 0% restenosis Right Coronary Stent in proximal RCA had 40% restenosis. Mid RCA had 30% stenosis R PDA small vessel had a 90% proximal stenosis Left Ventriculography The left ventricular ejection fraction is estimated to be 55-60%. Left ventricular wall motion abnormalities are not present. There is no mitral insufficiency. Hemodynamics The aortic pressure is 153/74 mmHg with a mean of 104 mmHg. The left ventricular pressure is 164/20 mmHg with a mean of mmHg. The left ventricular end diastolic pressure is 25 mmHg. There was no gradient across the aortic valve upon pullback. Pullback from the left ventricle to the aorta revealed no gradient across the aortic valve. Conclusion 1. no restenosis noted of stents in the LAD, circumflex and RCA 2. 90% proximal stenosis noted of a small posterior descending [place] [address] CARDIAC CATH REPORT Name: CONSTANTINO AGUAYO Room: [address] IN [facility].#: [id number] Admission: 07/28/20 Attend Phys: Mavis Peoples MD Discharge: 07/30/20 Date of : 38 Report #: [id number] 3. LVEF 55-60% Recommendations Aggressive Medical Therapy <ELECTRONICALLY SIGNED> By: Marques Matute MD, [facility] 07/29/20 1615 1615 1615David Natan Matute MD, FACC /INF
== END 2020-07-30 13:20 | disposition home or self-care (01) | DRG 287 ==
LOC: M.ERS 15:42 → M.TBA-ER 17:29 → M.2W 17:29
PROVIDERS: Emergency Medicine Emergency Medical Services; Internal Medicine; ADMIT Internal Medicine; ATTEND Internal Medicine
DX: I25.110 Atherosclerotic heart disease of native coronary artery with unstable angina pectoris (principal); I10 Essential (primary) hypertension; E78.5 Hyperlipidemia, unspecified; G25.81 Restless legs syndrome; G89.29 Other chronic pain; M54.9 Dorsalgia, unspecified; Z20.822 Contact with and (suspected) exposure to COVID-19; Z90.710 Acquired absence of both cervix and uterus; Z95.5 Presence of coronary angioplasty implant and graft; Z90.49 Acquired absence of other specified parts of digestive tract; Z98.41 Cataract extraction status, right eye; Z79.82 Long term (current) use of aspirin; Z79.899 Other long term (current) drug therapy; Z88.1 Allergy status to other antibiotic agents; Z88.8 Allergy status to other drugs, medicaments and biological substances

== ENCOUNTER → 2020-11-21 | Outpatient (CLI) | payer OTHER ==
[~2020-11-21] MED LIST changes: +ZETIA10 MG PO
== END | disposition home or self-care (01) ==
LOC: M.PC 09:40
PROVIDERS: ATTEND Physical Medicine & Rehabilitation
DX: M46.98 Unspecified inflammatory spondylopathy, sacral and sacrococcygeal region (principal); M54.5 Low back pain; M25.511 Pain in right shoulder; M19.011 Primary osteoarthritis, right shoulder; I10 Essential (primary) hypertension; I25.10 Atherosclerotic heart disease of native coronary artery without angina pectoris; Z79.899 Other long term (current) drug therapy; Z98.890 Other specified postprocedural states; Z88.8 Allergy status to other drugs, medicaments and biological substances

== ENCOUNTER → 2020-12-05 | Outpatient (CLI) | payer OTHER | LOC: M.PC 09:43 | PROVIDERS: ATTEND Physical Medicine & Rehabilitation | DX: M51.16 Intervertebral disc disorders with radiculopathy, lumbar region (principal); M47.26 Other spondylosis with radiculopathy, lumbar region; M19.011 Primary osteoarthritis, right shoulder; M16.11 Unilateral primary osteoarthritis, right hip ==

== ENCOUNTER 2021-01-04 12:31 | Emergency (ER) | payer OTHER ==
[~2021-01-04] VITALS: Ht 144.8 cm; Wt 64.0 kg
[2021-01-04 13:27] LABS: CALCIUM 8.7 mg/dL (8.5-10.1); CREATININE 1.1 mg/dL (0.6-1.3); POTASSIUM 3.6 mmol/L (3.5-5.1)
[2021-01-04 13:30] LABS: ABSOLUTE BASOPHILS 0.1 thou/uL (0.0-0.2); ABSOLUTE EOSINOPHILS 0.1 thou/uL (0.0-0.7); ABSOLUTE LYMPHOCYTES 2.2 thou/uL (0.8-5.3); ABSOLUTE MONOCYTES 0.4 thou/uL (0.0-1.2); ABSOLUTE NEUTROPHILS 5.6 thou/uL (1.6-8.1); BASOPHILS 1.3 %; EOSINOPHILS 0.9 %; HEMATOCRIT 35.8 % (37.0-47.0); HEMOGLOBIN 11.9 gm/dL (12.0-15.0); LYMPHOCYTES 26.6 %; MCH 31.2 pg (26.0-34.0); MCHC 33.2 g/dL (28.0-37.0); MONOCYTES 5.1 %; NUCLEATED RBCS 0 /100WBC; PLATELET COUNT* 201 thou/uL (150-400); POLYS 66.1 %; RDW-CV 16.8 % (10.5-14.5); WBC 8.4 thou/uL (4.0-11.0)
--- NOTE | 2021-01-04 13:34 | EKG ---
[place] [address] ELECTROCARDIOGRAM REPORT Name: CONSTANTINO AGUAYO Room: [facility]#: [id number] Admission: 01/04/21 Attend Phys: Discharge: Date of : 38 Date of Service: 01/04/21 1235 Report #: [id number] THIS REPORT FOR: //name// [facility] ED Test Date: 2021-01-04 Test Time: 12:35:08 Pat Name: CONSTANTINO AGUAYO Department: Room: Gender: Ring Maker: : 1940 Requested By: Varun Goldstein Order Number: [id number] MD: Marques Matute Measurements Intervals [place] Rate: 68 P: 4 RI: 173 QRS: 28 QRSD: 93 T: 41 QT: 378 QTc: 402 Interpretive Statements Sinus rhythm Ventricular premature complex Compared to ECG 07/29/2020 03:28:32 No significant changes Electronically Signed On 01-04-2021 13:34:11 CDT by Marques Matute [email or web address] <ELECTRONICALLY SIGNED> By: Marques Matute MD, [facility] 01/04/21 1334 1235 1235 Marques Matute MD, [facility] /EPI
[2021-01-04 13:38] LABS: ALBUMIN 3.4 g/dL (3.4-5.0); MAGNESIUM 1.9 mg/dL (1.8-2.4); TOTAL BILIRUBIN 0.6 mg/dL (<0.1-1.0); TOTAL PROTEIN 6.8 g/dL (6.4-8.2)
[2021-01-04 15:10] VITALS: BP 103/60
== END 2021-01-04 15:13 | disposition home or self-care (01) ==
LOC: M.ERS 12:31
PROVIDERS: Family Medicine
DX: R07.89 Other chest pain (principal); M19.90 Unspecified osteoarthritis, unspecified site; I25.10 Atherosclerotic heart disease of native coronary artery without angina pectoris; I10 Essential (primary) hypertension; Z90.710 Acquired absence of both cervix and uterus; Z88.5 Allergy status to narcotic agent; Z88.1 Allergy status to other antibiotic agents

== ENCOUNTER → 2021-03-29 | Outpatient (CLI) | payer OTHER | END | disposition home or self-care (01) | LOC: M.PC 08:36 | PROVIDERS: ATTEND Physical Medicine & Rehabilitation | DX: M53.3 Sacrococcygeal disorders, not elsewhere classified (principal); M54.59 Other low back pain; M46.98 Unspecified inflammatory spondylopathy, sacral and sacrococcygeal region; M46.1 Sacroiliitis, not elsewhere classified; M51.36 Other intervertebral disc degeneration, lumbar region; I10 Essential (primary) hypertension; I25.10 Atherosclerotic heart disease of native coronary artery without angina pectoris; M79.605 Pain in left leg; M19.011 Primary osteoarthritis, right shoulder; Z98.890 Other specified postprocedural states; Z79.899 Other long term (current) drug therapy; Z87.442 Personal history of urinary calculi; Z90.49 Acquired absence of other specified parts of digestive tract; Z90.710 Acquired absence of both cervix and uterus; Z90.711 Acquired absence of uterus with remaining cervical stump | CPT/HCPCS: G0260 ==

== ENCOUNTER → 2021-04-10 | Outpatient (CLI) | payer OTHER | LOC: M.RAD 12:03 | PROVIDERS: ATTEND Nurse Practitioner Family | DX: Z12.31 Encounter for screening mammogram for malignant neoplasm of breast (principal) ==